=== PATIENT | male | born 1965 | race Caucasian/White ===

== ENCOUNTER 2025-05-07 14:19 | Outpatient (CLI) | payer OTHER, SELFPAY ==
--- NOTE | ~2025-05-07 | CT_ITS ---
CT of the Abdomen and Pelvis: Indication: Abdominal pain Technique: 2.5 mm axial scans were obtained through the abdomen and pelvis following intravenous adm inistration of 100 cc of Omnipaque 350. Dose reduction technique was used on this scan by utilizing a utomated exposure control and iterative reconstruction technique. The dose-length product (DLP) was 4 71.47 mGy-cm. Findings: Scans through the lung bases are unremarkable. The liver, spleen, pancreas, gallbladder, adrenals and kidneys are within normal limits. There are ex tensive atherosclerotic calcifications of the aorta and iliac vessels. No lymphadenopathy. No bowel obstruction or bowel wall thickening. There is no evidence to suggest acute appendicitis. Images through the pelvis were performed. Urinary bladder unremarkable. No pelvic mass seen. No ascit es. Impression: No acute abnormalities seen. Reviewed, dictated and finalized at [facility]. Impression: No acute abnormalities seen.
--- OUTSIDE RECORDS SUMMARY | 2025-05-07 14:24 | XMS_ITS | Clinical Summary ---
Author Organization [facility] Address [address] [place] [address] Care Team Providers Care Handyperson Name Role Phone Seamus Jimenez MD Primary Care Provider [phone] Allergies No known active allergies Medications No known medications Social History Tobacco Use Types Packs/Day Years Used Date Smoking Tobacco: Never Assessed Personal Safety Answer Date Recorded Have you ever been in or are you currently in a harmful physical or emotional relationship or is someone making you feel afraid or unsafe? 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 Gender Identity Not on file Sexual Orientation Not on file Obstetrics History Last Filed Vital Signs Vital Sign Reading Time Taken Comments Blood Pressure 159/81 02/06/2024 7:30 PM CDT Pulse 76 02/06/2024 7:30 PM CDT Temperature 36.7 C (98 F) 02/06/2024 1:25 PM CDT Respiratory Rate 14 02/06/2024 5:57 PM CDT Oxygen Saturation 97% 02/06/2024 7:30 PM CDT Inhaled Oxygen Concentration - - Weight 81.6 kg (180 lb) 02/06/2024 1:25 PM CDT Height 182.9 cm (6') 02/06/2024 1:25 PM CDT Body Mass Index 24.41 02/06/2024 1:25 PM CDT Plan of Treatment Health Maintenance Due Date Last Done Comments Colon Cancer Screening-Colonoscopy 1965 Depression Screening 1965 Hepatitis C Screening 1965 Prostate Cancer Screening-PSA 1963 DTaP/Tdap/Td Vaccine (1 - Tdap) 1974 Hepatitis B Screening 1981 Regular Well Visit/Exam 18-64 1981 Zoster Vaccine (1 of 2) 2013 Influenza Vaccine (#1) 2025 Pneumococcal vaccine <65 Aged Out No longer eligible based on patient's age to complete this topic Insurance [facility] Care Teams Handyperson Relationship Specialty Start Date End Date Seamus Jimenez MD [address] [place] [address] [place] [address] PCP - General Internal Medicine 04/29/25
--- OUTSIDE RECORDS SUMMARY | 2025-05-07 14:24 | XMS_ITS | Clinical Summary ---
Author Organization [facility] Address [address] [place] [address] Phone Care Team Providers Care Patient Office Rep Name Role Phone Abi Reza DO Primary Care Provider [phone] Encounters Date Type Department Care Team Description 04/19/2025 Telephone [facility] [address] [place] [address] MD from Last 3 Months Social History Tobacco Use Types Packs/Day Years Used Date Smoking Tobacco: Never Assessed Sex and Gender Information Value Date Recorded Sex Assigned at Not on file Legal Sex Male 10:56 AM CDT Gender Identity Not on file Sexual Orientation Not on file Plan of Treatment Upcoming Encounters Date Type Department Care Team (Late st Contact Info) Description 06/12/2025 10:00 AM CDT Office [facility] [address] [place] [address] Eugene Trinh MD [address] [address] Health Maintenance Due Date Last Done Comments Hepatitis C Virus (HCV) Screening 1965 TdaP Immunization 1965 Cologuard 2008 Colonoscopy 2008 Colorectal Cancer Screening 2008 Immunochemical Fecal Occult Blood 2008 Pneumococcal Immunization (5 0+ years) (1 of 1 - PCV) 2013 Zoster Immunization (1 of 2) 2013 PSA Discussion 2018 SARS-COV-2 Immunization ( - 2024-25 season) 2024 Influenza Immunization (Seas on Ended) 2025 Respiratory Syncytial Virus (RSV) Immunization (Adult) (1 - 1-dose 75+ series) 2038 Hepatitis B Immunization Aged Out No longer eligible based on patient's age to complete this topic Human Papillomavirus (HPV) Immunization Aged Out No longer eligible b ased on patient's age to complete this topic Meningococcal Immunization (ACWY) Aged Out No longer eligible based on patient's age to complete this topic Rotavirus Immunization Aged Out No lo nger eligible based on patient's age to complete this topic Insurance MEDICA[employer] Care Teams Patient Office Rep Relationship Specialty Start Date End Date Abi Reza DO [address] [place] [address] [address] PCP - General Family Medicine 01/24/25
--- OUTSIDE RECORDS SUMMARY | 2025-05-07 14:24 | XMS_ITS ---
Author Organization [facility] Address [address] [place] [address] Care Team Providers Care Cull Grader Name Role Phone Seamus Jimenez Primary Care Provider Results Component Value Reference Range Notes UA/M w/rflx Culture, Routine Reviewed date:05/01/2025 03:14:18 PM Interpretation: Performing Lab:[facility], [email or web address] [facility], Phone - [phone], Director - PhDRicmargareti Notes/Report: Specific Monetta 1.027 1.005-1.030 pH 5.5 5.0-7.5 Urine-Color Yellow Yellow Appearance Clear Clear WBC Esterase Negative Negative Protein Negative Negative/Trace Glucose Negative Negative Ketones Negative Negative Occult Blood Negative Negative Bilirubin Negative Negative Urobilinogen,Semi-Qn 0.2 0.2-1.0 mg/dL Nitrite, Urine Negative Negative Microscopic Examination Micr oscopic follows if indicated. Microscopic Examination See below: Micr oscopic was indicated and was performed. Urinalysis Reflex This speci men will not reflex to a Urine Culture. WBC None seen 0 - 5 /hpf RBC 0-2 0 - 2 /hpf Epithelial Cells (non renal) None seen 0 - 10 /hpf Casts None seen None seen /lpf Bacteria None seen None seen/Few TSH Rfx on Abnormal to Free T4 Reviewed date:05/01/2025 03:14:18 PM Interpretation: Performing Lab:[facility], [facility] [facility], Phone - [phone], Director - PhDMaximiliani Notes/Report: TSH 1.290 0.450-4.500 uIU/mL CMP 14 Comprehensive Metabol ic Panel* Reviewed date:05/01/2025 03:14:18 PM Interpretation: Performing Lab:[facility] [address] [place] [address], Phone - [phone], Director - [facility] Notes/Report: Glucose 97 70-99 mg/dL BUN 22 8-27 mg/dL Creatinine 0.98 0.76-1.27 mg/dL eGFR 88 >59 mL/min/1.73 BUN/Creatinine Ratio 22 10-24 Sodium 138 134-144 mmol/L Potassium 4.5 3.5-5.2 mmol/L Chloride 104 96-106 mmol/L Carbon Dioxide, Total 19 20-29 mmol/L Calcium 9.8 8.6-10.2 mg/dL Protein, Total 7.2 6.0-8.5 g/dL Albumin 4.4 3.9-4.9 g/dL Globulin, Total 2.8 1.5-4.5 g/dL Bilirubin, Total 0.4 0.0-1.2 mg/dL Alkaline Phosphatase 73 44-121 IU/L AST (SGOT) 20 0-40 IU/L ALT (SGPT) 17 0-44 IU/L Lipid Panel* Reviewed date:05/01/2025 03:14:18 PM Interpretation: Performing Lab:[address], Phone - [phone], Director - [facility] Notes/Report: Cholesterol, Total 159 100-199 mg/dL Triglycerides 99 0-149 mg/dL HDL Cholesterol 42 >39 mg/dL VLDL Cholesterol Kyle 18 5-40 mg/dL LDL Chol Calc (NIH) 99 0-99 mg/dL C-Reactive Protein, Quant Reviewed date:05/01/2025 03:14:18 PM Interpretation: Performing Lab:[address], Phone - [phone], [facility] Notes/Report: C-Reactive Protein, Quant 4 0-10 mg/L CBC With Differential/Platel et* Reviewed date:05/01/2025 03:14:18 PM Interpretation: Performing Lab:[address], Phone - [phone], Director - PhDTiara Notes/Report: WBC 8.5 3.4-10.8 x10E3/uL RBC 5.48 4.14-5.80 x10E6/uL Hemoglobin 16.2 13.0-17.7 g/dL Hematocrit 50.1 37.5-51.0 % MCV 91 79-97 fL MCH 29.6 26.6-33.0 pg MCHC 32.3 31.5-35.7 g/dL RDW 12.9 11.6-15.4 % Platelets 237 150-450 x10E3/uL Neutrophils 60 Not Estab. % Lymphs 30 Not Estab. % Monocytes 7 Not Estab. % Eos 2 Not Estab. % Basos 1 Not Estab. % Neutrophils (Absolute) 5.1 1.4-7.0 x10E3/uL Lymphs (Absolute) 2.5 0.7-3.1 x10E3/uL Monocytes(Absolute) 0.6 0.1-0.9 x10E3/uL Eos (Absolute) 0.2 0.0-0.4 x10E3/uL Baso (Absolute) 0.1 0.0-0.2 x10E3/uL Immature Granulocytes 0 Not Estab. % Immature Grans (Abs) 0.0 0.0-0.1 x10E3/uL Testosterone, Serum Reviewed date:05/01/2025 03:14:18 PM Interpretation: Performing Lab:[facility] [place], [address] [facility], Phone - [phone], Director - [facility] Notes/Report: Testosterone 452 264-916 ng/dL Adult male reference interval is based on a population of healthy nonobese males (BMI <30) between 19 and 39 years old. Vernon et.al. JCEM 2017,102;5626-7067. PMID: [id number]. PSA, Serum (Serial Monitor)* Reviewed date:05/01/2025 03:14:18 PM Interpretation: Performing Lab:[facility] [place], [address] [facility], [place], Phone - [phone], Director - [facility] Notes/Report: Prostate Specific Ag 2.6 0.0-4.0 ng/mL Dav ECLIA methodology. . According to the [place] [employer], Serum PSA should decrease and remain at undetectable levels after radical prostatectomy. The AUA defines biochemical recurrence as an initial PSA value 0.2 ng/mL or greater followed by a subsequent confirmatory PSA value 0.2 ng/mL or greater. Values obtained with different assay methods or kits cannot be used interchangeably. Results cannot be interpreted as absolute evidence of the presence or absence of malignant disease. PDF . REASON FOR VISIT Labs-fasting Medications Medication SIG (Take, Route, Frequency, Duration) Notes Start Date End Date Status Tamsulosin HCl 0.4 MG 1 capsule Orally O nce a day Active Glycopyrrolate-Formoterol 9-4.8 MCG/ACT 2 puffs Inhalation Twice a day Active Albuterol Sulfate HFA 108 (90 Base) MCG/ACT 1 puff as needed Inhalation every 4 hrs Active Varenicline Tartrate 0.5 MG 1 tablet aft er eating with a full glass of water DAILY FOR THREE DAYS, TWICE DAILY FOR 4 DAYS, THEN BEGIN 1 MG TABS Orally DIRECTED; Duration: 7 days 04/24/2025 Active Varenicline Tartrate 1 MG 1 tablet after eating with a full glass of water (BEGIN AFTER COMPLETING 0.5 MG TAB) Orally Twice a day; Duration: 30 days 04/24/2025 Active Rosuvastatin Calcium 20 MG 1 tablet Oral ly Once a day Active Finasteride 5 MG 1 tablet Orally Once a day; Duration: 30 days 04/24/2025 Active Encounters Encounter Location Date Provider Diagnosis [place] [address] [place] [address] 04/25/2025 Seamus Jimenez Erectile disorder N5 2.9 ; Abdominal pain R10.9 ; Hyperlipidemia E78.5 and BPH w/o urinary obs/LUTS N40.0 Assessments Encounter Date Diagnosis (ICD Code) Assessment Notes Treatment Notes Treatment Clinical Notes Section Notes 04/25/2025 Erectile disorder (ICD-10 - N52.9) 04/25/2025 Abdominal pain (ICD-10 - R10.9) 04/25/2025 Hyperlipidemia (ICD-10 - E78.5) 04/25/2025 BPH w/o urinary obs/LUTS (ICD-10 - N40.0) Plan Of Treatment Next Appt Details Provider Name:Seamus Jimenez , 05/09/2025 10:00:00 AM, [address] [facility] [address], [place], [address], Progress Notes * Cristobal KRAMERDOB:1965 ( 59 yo M)Acc No.[id number]:04/25/2025 UNLOCKED PROGRESS NOTE Patient: Cristobal COLEMAN Provider: Nieves Jimenez :1965 A ge:59 Y S ex:Male Date:04/25/2025 Address:[address] [place], [place] [id number] Subjective: * Chief Complaints: * 1 . Labs-fasting. * Medical History: * Medications: T aking Glycopyrrolate-Formoterol 9-4.8 MCG/ACT Aerosol 2 puffs Inhalation Twice a day , Taking Albuterol Sulfate HFA 108 (90 Base) MCG/ACT Aerosol Solution 1 puff as needed Inhalation every 4 hrs , Taking Tamsulosin HCl 0.4 MG Capsule 1 capsule Orally Once a day , Taking Rosuvastatin Calcium 20 MG Tablet 1 tablet Orally Once a day , Taking Finasteride 5 MG Tablet 1 tablet Orally Once a day , Taking Varenicline Tartrate 0.5 MG Tablet 1 tablet after eating with a full glass of water DAILY FOR THREE DAYS, TWICE DAILY FOR 4 DAYS, THEN BEGIN 1 MG TABS Orally DIRECTED , Taking Varenicline Tartrate 1 MG Tablet 1 tablet after eating with a full glass of water (BEGIN AFTER COMPLETING 0.5 MG TAB) Orally Twice a day Objective: * Vitals: Assessment: * Assessment: 1. E rectile disorder - N52.9 2 . A bdominal pain - R10.9 3 . H yperlipidemia - E78.5 4 . B PH w/o urinary obs/LUTS - N40.0 ? Plan: * Treatment: 2. A bdominal pain L AB: CBC With Differential/Platelet* (Collection Date & Time - 04/25/2025) L AB: C-Reactive Protein, Quant (Collection Date & Time - 04/25/2025) L AB: CMP 14 Comprehensive Metabolic Panel* (Collection Date & Time - 04/25/2025) L AB: UA/M w/rflx Culture, Routine (Collection Date & Time - 04/25/2025) 3. H yperlipidemia L AB: Lipid Panel* (Collection Date & Time - 04/25/2025) L AB: TSH Rfx on Abnormal to Free T4 (Collection Date & Time - 04/25/2025) 4. B PH w/o urinary obs/LUTS L AB: PSA, Serum (Serial Monitor)* (Collection Date & Time - 04/25/2025) * * Electronic signature of Elizabeth Jimenez , [id number] on 05/07/2025 at 02:24 PM CDT Sign off status: Pending * Provider: Nieves Jimenez Date: 0 04/25/2025 Generated for Genesis stern/Sheridan/eTkrista on: 0 05/07/2025 02:24 PM CDT
--- OUTSIDE RECORDS SUMMARY | 2025-05-07 14:24 | XMS_ITS | Referral Summary ---
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
--- OUTSIDE RECORDS SUMMARY | 2025-05-07 14:24 | XMS_ITS | Clinical Summary ---
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 Pulse 87 11/12/2015 8:28 AM MANAGER PHOTO Temperature - - Respiratory Rate - - Oxygen Saturation - - Inhaled Oxygen Concentration - - Weight 84.4 kg (186 lb) 11/12/2015 8:28 AM MANAGER PHOTO Height 177.8 cm (5' 10) 11/12/2015 8:28 AM MANAGER PHOTO Body Mass Index 26.69 11/12/2015 8:28 AM MANAGER PHOTO Plan of Treatment Health Maintenance Due Date Last Done Comments Colorectal Cancer Screening Colonoscopy (10 Years) 1963 Annual Physical 1966 Hepatitis C 1981 DTaP, Tdap and Td Vaccines ( 1 - Tdap) 1982 Pneumococcal Vaccine: 50+ Ye ars (1 of 1 - PCV) 2013 Zoster Vaccines (1 of 2) 2013 COVID-19 Vaccine ( - 2023-2 5 season) 2024 RSV Immunization or 60+ Years (1 - 1-dose 75+ series) 2038 Meningococcal B Vaccine Aged Out No l onger eligible based on patient's age to complete this topic Meningococcal Vaccine Aged Out No peña maggi eligible based on patient's age to complete this topic RSV Immunizations Under 20 Months Aged Out No longer eligible based on patient's age to complete this topic
--- OUTSIDE RECORDS SUMMARY | 2025-05-07 14:25 | XMS_ITS | Data Portability ---
Author Organization [facility] ALONSOZaynab [facility] Address [address] [place] [address] Assessment No assessment recorded. Plan of Treatment Reminders Order Date Submit Date Provider Last Modified By Organization Details Last Modified Time Details Appointments None recorded. Lab PSA, total, serum or plasma 2024 025 [facility] [address], [place], [address], 5 08:23:37 CMP, serum or plasma 2024 025 [facility], 20[facility] [address], [address], [place], [address], 5 08:23:41 CBC w/ auto diff 2024 025 [facility], 20[address], [address], [place], [address], 5 08:23:42 HbA1c (hemoglobi n A1c), blood 2024 025 [facility], 2022 Julia Lou, [address], [place], [address], 5 08:23:36 lipid panel, serum 2024 025 [facility], 20[address], [address], [place], [address], 5 08:23:40 lipid panel, serum 05/09/ 2024 05/09/2 024 [facility], 2022 Julia [address], [address], [place], [address], 4 06:17:59 albumin/cr eatinine, mass ratio, urine 2023 024 [facility], 2022 Julia [address], [address], [place], [address], 4 08:25:35 HbA1c (hemoglobi n A1c), blood 2023 024 [facility], 2022 Julia [address], [address], [place], [address], 4 08:25:36 Referral audiologis t referral 2023 024 [facility] (Audiology), [address] [place] [address] [address], [place], [address], 4 15:20:16 Procedures None recorded. Surgeries None recorded. Imaging None recorded. Medication Orders Flomax 0.4 mg capsule 2024 025 carlos [facility]/Pharmacy #[id number], [address] , [place], [address], 5 15:06:51 lisinopril 5 mg tablet 2024 025 [facility]/Pharmacy #[id number], [address], [place], [address], 5 12:42:03 Bevespi Aerosphere 9 mcg-4.8 mcg HFA aerosol inhaler 2024 025 [facility]/Pharmacy #[id number], [address], [place], [address], 5 12:42:04 rosuvastat in 20 mg tablet 2024 025 [facility]/Pharmacy #[id number], [address], [place], [address], 5 12:42:04 nicotine 21 mg/24 hr daily transderma l patch 2023 024 [facility]/Pharmacy #[id number], [address], [place], [address], 4 14:53:12 lisinopril 5 mg tablet 2023 024 [facility]/Pharmacy #[id number], [address], [place], [address], 4 16:27:46 atorvastat in 40 mg tablet 2023 024 [id number], [address] [place], [address], 4 16:27:46 Bevespi Aerosphere 9 mcg-4.8 mcg HFA aerosol inhaler 2023 024 [facility]/Pharmacy #[id number], [address] [place], [address], 4 11:04:33 albuterol sulfate HFA 90 mcg/actuat ion aerosol inhaler 2023 024 [facility]/Pharmacy #[id number], [address], [place], [address], 4 14:53:27 lisinopril 10 mg tablet 2023 024 [id number], [address], [place], [address], 4 11:33:16 atorvastat in 40 mg tablet 2023 024 [facility]/Pharmacy #[id number], [address], [place], [address], 16:54:23 Patient TargetsNo targets recorded. Patient Instructions Encounter Date Encounter Id Patient Instructions Last Modified By Organization Details Last Modified Time 11/08/2023 [id number] presbyopia: care instructions [email or web address] Not available 11/08/2023 14:34:37 headache: care instructions msafi Not available 11/08/2023 14:34:37 03/01/2024 [id number] Quitting Tobacco : Care Instructions Not available 03/01/2024 17:00:01 complete PFT w/ post bronchodilator spirometry* ASIYA Not available 04/18/2024 08:35:53 On the date of this encounter, I was immediately available to assist the resident/fellow in the care of the patient, and have reviewed and agree with the resident s findings and plan of care. ~MD shahriar Matthews4 Not available 03/01/2024 16:46:20 05/08/2024 [id number] On the date of this encounter, I was immediately available to assist the resident/fellow in the care of the patient, and have reviewed and agree with the resident s findings and plan of care. ~MD shahriar Matthews4 Not available 05/08/2024 14:35:17 01/18/2025 [id number] post-traumatic stress disorder (PTSD): care instructions [email or web address] Not available 01/18/2025 12:42:00 Quitting Tobacco : Care Instructions [email or web address] Not available 01/18/2025 12:42:00 learning about high blood pressure jdraus Not available 01/18/2025 12:42:00 chronic obstructive pulmonary disease (COPD): care instructions jdraus Not available 01/18/2025 12:42:01 learning about copd and how to prevent lung infections jdraus Not available 01/18/2025 12:42:00 high cholesterol : care instructions jdraus Not available 01/18/2025 12:42:01 I saw the patien t with the resident. I agree with the resident's assessment and plan as documented Alesha Villagomez MD [email or web address] Not available 01/18/2025 12:48:36 Reason for Referral Stem Roller Referral for Raúl ateral tinnitus Referring Physician: Heriberto Addison, Otolaryngology, Encounter Date: 11/08/2023 Results Created Date Observation Date Name Description Value Unit Range Abnormal Flag Note LastModifiedBy Organization Detail LastModifiedTime 03/01/20 24 03/01/2024 LIPID PANEL cholesterol, total 261 mg/dL 100-19 9 above high normal Not Available [facility] [address] [place] [address], [address], 03/02/2024 06:17:59 03/01/20 24 03/01/2024 LIPID PANEL triglyceride s 281 mg/dL 0-149 above high normal Not Available [facility] [address] [place] [address], [address], 03/02/2024 06:17:59 03/01/20 24 03/01/2024 LIPID PANEL HDL cholesterol 39 mg/dL 40-999 below low normal Not Available [facility] [address] [place], [address], 03/02/2024 06:17:59 03/01/20 24 03/01/2024 LIPID PANEL VLDL cholesterol lisa 56 mg/dL 5-40 above high normal Not Available [facility] [address] [place] [address], [address], 03/02/2024 06:17:59 03/01/20 24 03/01/2024 LIPID PANEL LDL chol calc ([facility]) 201 mg/dL 0-99 above high normal Not Available [facility] [address] [place] [address], [address], 03/02/2024 06:17:59 03/01/2003/02/2024 ALBUM IN/CR EATIN INE RATIO ,URIN E creatinine, urine 263.2 mg/dL notest ab. Not Available [facility] ([facility]) [address] [facility], [place], [address], 03/02/2024 08:25:35 05/09/20 24 03/02/2024 ALBUM IN/CR EATIN INE RATIO ,URIN E albumin, urine 7.0 ug/mL notest ab. Not Available [facility] ([facility]) [address] [place], [address], 03/02/2024 08:25:35 03/01/20 24 03/02/2024 ALBUM IN/CR EATIN INE RATIO ,URIN E alb/creat ratio 3 mg/g_ creat 0-29 Leilani l: 0 - 29 Moder ately incre ased: 30 - 300 Sever joe incre ased: >300 Not Available [facility] ([facility]) [address] [place], [address], 03/02/2024 08:25:35 03/01/20 24 03/02/2024 HEMOG LOBIN A1C hemoglobin A1C 6.1 % 4.8-5. 6 above high normal Predi abete s: 5.7 - 6.4 Diabe lori: >6.4 Glyce orly contr ol for adult s with diabe lori: <7.0 Not Available [facility] ([facility]) [address] [place], [address], 03/02/2024 08:25:36 01/19/2001/19/2025 HEMOG LOBIN A1C hemoglobin A1C 6.1 % 4.8-5. 6 above high normal Predi abete s: 5.7 - 6.4 Diabe lori: >6.4 Glyce orly contr ol for adult s with diabe olri: <7.0 Not Available [facility] ([facility]) [address] [place], [address], 01/19/2025 08:23:36 01/19/2001/19/2025 PROST ATE-S PECIF IC AG prostate specific Ag 4.7 NG/mL 0.0-4. 0 above high normal Dav ECLIA metho dolog y. Accor david to the Ameri can [employer] g[employer] iatio n, Serum PSA shoul d decre ase and remai n at undet ectab le level s after radic al prost atect derek. The AUA defin es bioch emica l recur rence as an initi al PSA value 0.2 ng/mL or great er follo wed by a subse quent confi rmato ry PSA value 0.2 ng/mL or great er. Value s obtai karon with diffe rent assay metho ds or kits canno t be used inter soriano eably . Resul ts canno t be inter prete d as absol gavi evide nce of the prese nce or absen ce of [facility] se. Not Available [facility] ([facility]) [address] [place], [address], 01/19/2025 08:23:37 01/19/20 25 01/19/2025 LIPID PANEL cholesterol, total 172 mg/dL 100-19 9 Not Available [facility] ([facility]) [address] [place], [address], 01/19/2025 08:23:40 01/19/20 25 01/19/2025 LIPID PANEL triglyceride s 213 mg/dL 0-149 above high normal Not Available [facility] ([facility]) [address] [place], [address], 01/19/2025 08:23:40 01/19/20 25 01/19/2025 LIPID PANEL HDL cholesterol 40 mg/dL >39 Not Available [facility] ([facility]) [address] [place], [address], 01/19/2025 08:23:40 01/19/20 25 01/19/2025 LIPID PANEL VLDL cholesterol lisa 36 mg/dL 5-40 Not Available [facility] ([facility]) [address] [place], [address], 01/19/2025 08:23:40 01/19/20 25 01/19/2025 LIPID PANEL LDL chol calc ([facility]) 96 mg/dL 0-99 Not Available [facility] ([facility]) [address] [facility] [place], [address], 01/19/2025 08:23:40 01/19/20 25 01/19/2025 COMP. METAB OLIC PANEL (14) glucose 76 mg/dL 70-99 Not Available [facility] ([facility]) [address] [facility] [place], [address], 01/19/2025 08:23:41 01/19/20 25 01/19/2025 COMP. METAB OLIC PANEL (14) BUN 27 mg/dL 8-27 Not Available [facility] ([facility]) [address] [facility] [place], [address], 01/19/2025 08:23:41 01/19/20 25 01/19/2025 COMP. METAB OLIC PANEL (14) creatinine 1.00 mg/dL 0.76-1 .27 Not Available [facility] ([facility]) [address] [place], [address], 01/19/2025 08:23:41 01/19/20 25 01/19/2025 COMP. METAB OLIC PANEL (14) eGFR 86 mL/mi n/1.7 3 >59 Not Available [facility] ([facility]) [address] [place], [address], 01/19/2025 08:23:41 01/19/20 25 01/19/2025 COMP. METAB OLIC PANEL (14) BUN/creatini ne ratio 27 10-24 above high normal Not Available [facility] ([facility]) [address] [place], [address], 01/19/2025 08:23:41 01/19/20 25 01/19/2025 COMP. METAB OLIC PANEL (14) sodium 139 mmol/ L 134-14 4 Not Available [facility] ([facility]) [address] [place], [address], 01/19/2025 08:23:41 01/19/20 25 01/19/2025 COMP. METAB OLIC PANEL (14) potassium 4.8 mmol/ L 3.5-5. 2 Not Available [facility] ([facility]) [address] [facility], [place], [address], 01/19/2025 08:23:41 01/19/20 25 01/19/2025 COMP. METAB OLIC PANEL (14) chloride 103 mmol/ L 96-106 Not Available [facility] ([facility]) [address] [facility], [place], [address], 01/19/2025 08:23:41 01/19/20 25 01/19/2025 COMP. METAB OLIC PANEL (14) carbon dioxide, total 20 mmol/ L 20-29 Not Available [facility] ([facility]) [address] [facility] [place], [address], 01/19/2025 08:23:41 01/19/20 25 01/19/2025 COMP. METAB OLIC PANEL (14) calcium 10.0 mg/dL 8.6-10 .2 Not Available [facility] ([facility]) [address] [facility] [place], [address], 01/19/2025 08:23:41 01/19/20 25 01/19/2025 COMP. METAB OLIC PANEL (14) protein, total 7.3 g/dL 6.0-8. 5 Not Available [facility] ([facility]) [address] [facility] [place], [address], 01/19/2025 08:23:41 01/19/20 25 01/19/2025 COMP. METAB OLIC PANEL (14) albumin 4.6 g/dL 3.9-4. 9 Not Available [facility] ([facility]) [address] [facility], [place], [address], 01/19/2025 08:23:41 01/19/20 25 01/19/2025 COMP. METAB OLIC PANEL (14) globulin, total 2.7 g/dL 1.5-4. 5 Not Available [facility] ([facility]) [address] [place], [address], 01/19/2025 08:23:41 01/19/20 25 01/19/2025 COMP. METAB OLIC PANEL (14) bilirubin, total 0.3 mg/dL 0.0-1. 2 Not Available [facility] ([facility]) [address] [facility], [place], [address], 01/19/2025 08:23:41 01/19/20 25 01/19/2025 COMP. METAB OLIC PANEL (14) alkaline phosphatase 79 IU/L 44-121 Not Available [facility] ([facility]) [address] [facility], [place], [address], 01/19/2025 08:23:41 01/19/20 25 01/19/2025 COMP. METAB OLIC PANEL (14) AST (SGOT) 18 IU/L 0-40 Not Available [facility] ([facility]) [address] [place], [address], 01/19/2025 08:23:41 01/19/20 25 01/19/2025 COMP. METAB OLIC PANEL (14) ALT (SGPT) 22 IU/L 0-44 Not Available [facility] ([facility]) [address] [place], [address], 01/19/2025 08:23:41 01/19/20 25 01/19/2025 CBC WITH DIFFE RENTI AL/PL ATELE T WBC 9.2 x10e3 /uL 3.4-10 .8 Not Available [facility] ([facility]) [address] [place], [address], 01/19/2025 08:23:42 01/19/20 25 01/19/2025 CBC WITH DIFFE RENTI AL/PL ATELE T RBC 5.45 x10e6 /uL 4.14-5 .80 Not Available [facility] ([facility]) [address] [place], [address], 01/19/2025 08:23:42 01/19/20 25 01/19/2025 CBC WITH DIFFE RENTI AL/PL ATELE T hemoglobin 16.0 g/dL 13.0-1 7.7 Not Available [facility] ([facility]) [address] [place], [address], 01/19/2025 08:23:42 01/19/20 25 01/19/2025 CBC WITH DIFFE RENTI AL/PL ATELE T hematocrit 49.1 % 37.5-5 1.0 Not Available [facility] ([facility]) [address] [place], [address], 01/19/2025 08:23:42 01/19/20 25 01/19/2025 CBC WITH DIFFE RENTI AL/PL ATELE T MCV 90 fL 79-97 Not Available [facility] ([facility]) [address] [place], [address], 01/19/2025 08:23:42 01/19/20 25 01/19/2025 CBC WITH DIFFE RENTI AL/PL ATELE T MCH 29.4 pg 26.6-3 3.0 Not Available [facility] ([facility]) [address] [place], [address], 01/19/2025 08:23:42 01/19/20 25 01/19/2025 CBC WITH DIFFE RENTI AL/PL ATELE T MCHC 32.6 g/dL 31.5-3 5.7 Not Available [facility] ([facility]) [address] [place], [address], 01/19/2025 08:23:42 01/19/20 25 01/19/2025 CBC WITH DIFFE RENTI AL/PL ATELE T RDW 12.9 % 11.6-1 5.4 Not Available [facility] ([facility]) [address] [facility], [place], [address], 01/19/2025 08:23:42 01/19/20 25 01/19/2025 CBC WITH DIFFE RENTI AL/PL ATELE T platelets 311 x10e3 /uL 150-45 0 Not Available [facility] ([facility]) [address] [facility], [place], [address], 01/19/2025 08:23:42 01/19/20 25 01/19/2025 CBC WITH DIFFE RENTI AL/PL ATELE T neutrophils 64 % notest ab. Not Available [facility] ([facility]) [address] [facility], [place], [address], 01/19/2025 08:23:42 01/19/20 25 01/19/2025 CBC WITH DIFFE RENTI AL/PL ATELE T lymphs 26 % notest ab. Not Available [facility] ([facility]) [address] [facility], [place], [address], 01/19/2025 08:23:42 01/19/20 25 01/19/2025 CBC WITH DIFFE RENTI AL/PL ATELE T monocytes 7 % notest ab. Not Available [facility] ([facility]) [address] [facility], [place], [address], 01/19/2025 08:23:42 01/19/20 25 01/19/2025 CBC WITH DIFFE RENTI AL/PL ATELE T eos 2 % notest ab. Not Available [facility] ([facility]) [address] [facility], [place], [address], 01/19/2025 08:23:42 01/19/20 25 01/19/2025 CBC WITH DIFFE RENTI AL/PL ATELE T basos 1 % notest ab. Not Available [facility] ([facility]) [address] [facility], [place], [address], 01/19/2025 08:23:42 01/19/20 25 01/19/2025 CBC WITH DIFFE RENTI AL/PL ATELE T neutrophils (absolute) 5.8 x10e3 /uL 1.4-7. 0 Not Available [facility] ([facility]) [address] [facility], [place], [address], 01/19/2025 08:23:42 01/19/20 25 01/19/2025 CBC WITH DIFFE RENTI AL/PL ATELE T lymphs (absolute) 2.4 x10e3 /uL 0.7-3. 1 Not Available [facility] ([facility]) [address] [facility], [place], [address], 01/19/2025 08:23:42 01/19/20 25 01/19/2025 CBC WITH DIFFE RENTI AL/PL ATELE T monocytes(ab solute) 0.7 x10e3 /uL 0.1-0. 9 Not Available [facility] ([facility]) [address] [facility], [place], [address], 01/19/2025 08:23:42 01/19/20 25 01/19/2025 CBC WITH DIFFE RENTI AL/PL ATELE T eos (absolute) 0.2 x10e3 /uL 0.0-0. 4 Not Available [facility] ([facility]) [address] [facility], [place], [address], 01/19/2025 08:23:42 01/19/20 25 01/19/2025 CBC WITH DIFFE RENTI AL/PL ATELE T baso (absolute) 0.1 x10e3 /uL 0.0-0. 2 Not Available [facility] ([facility]) [address] [facility], [place], [address], 01/19/2025 08:23:42 01/19/20 25 01/19/2025 CBC WITH DIFFE RENTI AL/PL ATELE T immature granulocytes 0 % notest ab. Not Available [facility] ([facility]) [address] [facility], [place], [address], 01/19/2025 08:23:42 01/19/20 25 01/19/2025 CBC WITH DIFFE RENTI AL/PL ATELE T immature grans (abs) 0.0 x10e3 /uL 0.0-0. 1 Not Available [facility] ([facility]) [address] [facility], [place], [address], 01/19/2025 08:23:42 12/03/19 24 12/03/2023 XR, ribs, bilat eral No observ ation record ed. [email or web address] [facility] [address] [place], [address], 12/05/2023 03:32:35 04/18/20 24 04/17/2024 compl ete PFT w/ post [facility] hodil ator ana paula metry * No observ ation record ed. [email or web address] [facility] [address] [place], [address], 05/08/2024 14:52:38 Result Notes None recorded. Problems Name Problem SNOMED Code Status Onset Date Resolution Date Notes Provider Name and Address Organization Details Recorded Time Tobacco dependenc e syndrome 20466265 Active 2021 SAILAJA DAUGHERTY MD Attn: Accounting ,[address] [facility], [place], [address] , [facility] 4 17:41:28 Dyspnea on exertion 79326238 Active 2021 Mild Not Available [facility] 3 06:18:20 Cough 82867331 Active 2021 Not Available [facility] 3 06:18:20 Family history of coronary arteriosc lerosis 961427592 Active 2021 Not Available [facility] 3 06:18:20 Family history of malignant neoplasm of lung 574651693 Active 2021 Not Available [facility] 3 06:18:20 Screening for malignant neoplasm of prostate Active 2021 Not Available [facility] 3 06:18:20 Screening for malignant neoplasm of colon Active 2021 Not Available [facility] 3 06:18:20 Blurring of visual image 644406435 Active 2021 Not Available [facility] 3 06:18:20 Lesion of lip 451403909 Active 2021 Not Available [facility] 3 06:18:20 Hyperlipi demia 05031013 Active 2021 SAILAJA DAUGHERTY MD Attn: Accounting ,[address] [place], [address] , [place] [facility] 4 17:42:30 History of polyp of colon 001244749 Active 2022 Erickson Anglin MD Attn: Accounting ,[address] [facility], [place], [address] , [place] [facility] 3 16:09:38 Disorder of abdomen 409435474 Active 2022 Protubera nt Erickson Anglin MD Attn: Accounting ,[address] [facility], [place], [address] , [place] [facility] 3 16:15:47 Skin lesion 03269687 Active 2022 Erickson Anglin MD Attn: Accounting ,[address] [facility], [place], [address] , [place] [facility] 3 16:28:00 Bilateral tinnitus 62958792619 02 Active 2022 Erickson Anglin MD Attn: Accounting ,[address] [facility], [place], [address] , [place] [facility] 3 17:07:38 Tick bite 36341039 Active 2023 Erickson Anglin MD Attn: Accounting ,[address] [facility], [place], [address] , [place] - [facility] 4 16:27:11 Essential hypertens ion 39607593 Active 2023 SAILAJA DAUGHERTY MD Attn: Accounting ,[address] [place], [address] , [facility] 4 17:41:51 Mild chronic obstructi ve pulmonary disease 047984307 Active 2023 DONNIE GILBERT DO Attn: Accounting ,[address] [place], [address] , [facility] 5 09:49:00 Problem Notes None recorded. Medical Equipment None Reported. Allergies Allergen ID Allergen Name Allergen Category Reaction Reaction Severity Criticality Documentation Date Start Date Code Code System Note Provider Name and Address Organization Details Recorded Time 500560 mattson allergeni c extract food,medi cation Not available Not available Not available 09/20/2022 11703 1 RxNorm Sheeba Giles null, [facility] 2 10:24:27 Medications Name Sig Start Date Stop Date Status Note LastModified by Organization Details LastModified Time atorvastati n 40 mg tablet active Not Available Not Available Not Available bupropion HCl SR 150 mg tablet,12 hr sustained-r elease TAKE ONE TABLET BY MOUTH TWICE DAILY 10/06 completed Not Available Not Available Not Available promethazin e-DM 6.25 mg-15 mg/5 mL oral syrup Take 10 mL 3 times a day by oral route as needed for 8 days. 10/06 completed Not Available Not Available Not Available doxycycline hyclate 100 mg capsule TAKE 2 CAPSULES BY MOUTH ONCE ONE DOSE 05/08 completed Not Available Not Available Not Available atorvastati n 10 mg tablet TAKE ONE TABLET BY MOUTH EVERY EVENING 03/01 completed Not Available Not Available Not Available peg-electro lyte solution 420 gram oral solution USE DIRECTED 05/08 completed Not Available Not Available Not Available tamsulosin 0.4 mg capsule TAKE 1 CAPSULE BY MOUTH EVERY DAY 2024 active Not Available Not Available Not Avai lable lisinopril 10 mg tablet TAKE 1 TABLET BY MOUTH EVERY DAY FOR 30 DAYS PATIEN T NEEDS TO SCHEDULE FOLLOW UP active Not Available Not Available No t Available nicotine 21 mg/24 hr daily transdermal patch APPLY 1 PATCH TO THE SKIN ONCE EVERY DAY active Not Available Not Available No t Available bisacodyl 5 mg tablet,zoë yed release TAKE DIRECTED 05/08 completed Not Available Not Available Not Available lisinopril 5 mg tablet Take 1 tablet every day by oral route. 2024 active Not Available Not Available Not Avai lable methylpredn isolone 4 mg tablets in a dose pack Use as directed on package 05/08 completed Not Available Not Available Not Available albuterol sulfate HFA 90 mcg/actuati on aerosol inhaler INHALE 2 PUFFS INTO THE LUNGS 4 TIMES A DAY NEEDED 2024 active Not Available Not Available Not Avai lable rosuvastati n 20 mg tablet take one tablet by mouth every day 2024 active Not Available Not Available Not Avai lable Advair HFA 230 mcg-21 mcg/actuati on aerosol inhaler INHALE TWO PUFFS TWICE DAILY 05/08 completed Not Available Not Available Not Available Bevespi Aerosphere 9 mcg-4.8 mcg HFA aerosol inhaler INHALE 2 PUFFS BY MOUTH TWICE DAILY FOR COPD active Not Available Not Available No t Available Compact Space Chamber USE as directed with inhaler active Not Available Not Available No t Available Vitals Date Recorded Body height Body temperature Body mass index (BMI) Body weight Heart rate Systolic And Diastolic Provider Name and Address Organization Details Last Updated DateTime 4 180.34 cm 98.1 [degF] 26.3 kg/m2 65936.5 2 g 52 /min 153/92 mm[Hg] Kim Wolff MA [facility] 4 14:18:46 Date Recorded Body height Body mass index (BMI) Body weight Heart rate Respiratory rate Body temperature Systolic And Diastolic Provider Name and Address Organization Details Last Updated DateTime 4 180.34 cm 26.3 kg/m2 76550.5 2 g 52 /min 18 /min 98.1 [degF] 153/92 mm[Hg] Varsha Hubbard MA [facility] 4 14:43:07 Date Recorded Body height Body mass index (BMI) Body weight Body temperature Heart rate Respiratory rate Oxygen saturation Oxygen saturation in Arterial blood by Pulse oximetry Systolic And Diastolic Provider Name and Address Organization Details Last Updated DateTime 5 180.34 cm 25.1 kg/m2 86922.9 8 g 99.1 [degF] 81 /min 18 /min 98 % 98 % 149/68 mm[Hg] Sunita Briceño MA [facility] 5 11:22:13 Date Recorded Body height Body mass index (BMI) Body weight Body temperature Respiratory rate Oxygen saturation Oxygen saturation in Arterial blood by Pulse oximetry Heart rate Systolic And Diastolic Provider Name and Address Organization Details Last Updated DateTime 4 180.34 cm 25.6 kg/m2 58389.8 5 g 97.1 [degF] 18 /min 99 % 99 % 80 /min 161/100 mm[Hg] Delfino maradiaga [facility] 4 16:03:31 Date Recorded Body height Body mass index (BMI) Body weight Respiratory rate Body temperature Heart rate Oxygen saturation Oxygen saturation in Arterial blood by Pulse oximetry Systolic And Diastolic Systolic And Diastolic Systolic And Diastolic Provider Name and Address Organization Details Last Updated DateTime 4 180.34 cm 25.3 kg/m2 25303.3 7 g 18 /min 97.1 [degF] 92 /min 95 % 95 % 103/67 mm[Hg] 119/71 mm[Hg] 108/72 mm[Hg] Indira Kim Cadence [facility] 4 14:46:18 Social History Question Answer Notes LastModified by Organizat ion Details LastModified Time Tobacco Smoking Status Current Every Day Smoker Sherron Petty [facility] 08/16/2022 14:14:17 Do You Have An Advance Directive? No Information not available 09/13/2022 Are You Blind Or Do You Have Difficulty Seeing? No Information not available 03/01/2024 What Is Your Level Of Caffeine Consumption? Occasional Information not available 05/08/2024 In The 14 Days Before Symptom Onset, Have You Had Close Contact With A Laboratory-confir med COVID-19 While That Case Was Ill? No Information not available 09/13/2022 In The 14 Days Before Symptom Onset, Have You Had Close Contact With A Person Who Is Under Investigation For COVID-19 While That Person Was Ill? No Information not available 09/13/2022 Have You Been To An Area Known To Be High Risk For COVID-19? No Information not available 09/13/2022 Are You Deaf Or Do You Have Serious Difficulty Hearing? Yes Went To Ear Dr melchor Information not available 03/01/2024 What Is The Highest Grade Or Level Of School You Have Completed Or The Highest Degree You Have Received? [id number] Information not available 09/13/2022 Are There Any Guns Present In Your Home? No Information not available 03/01/2024 Do You Have A Medical Power Of Executive Asst? No Information not available 09/13/2022 What Was The Date Of Your Most Recent Tobacco Screening? 01/18/2025 Information not available 01/18/2025 How Many Children Do You Have? 5 Information not available 05/08/2024 Do You Use Protection During Sex? Always Information not available 03/01/2024 What Is Your Relationship Status? Information not available 03/01/2024 Do You Use Your Seat Belt Or Car Seat Routinely? Yes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
[2025-05-07 15:07] LABS: Estimated Glomerular Filt Rate > 60
== END 2025-05-07 14:20 | disposition home or self-care (01) ==
PROVIDERS: Visit Provider Internal Medicine
DX: R10.9 Unspecified abdominal pain (principal)
CPT/HCPCS: 74177; Q9967

== ENCOUNTER 2025-08-14 00:24 | Day surgery (SDC) | payer OTHER, SELFPAY ==
--- OUTSIDE RECORDS SUMMARY | 2025-05-09 05:00 | XMS_ITS ---
Author Organization [facility] Address [address] [place] [address] Care Team Providers Care Shell Sorter Name Role Phone Seamus Jimenez Primary Care Provider REASON FOR VISIT 2 Week F/U Per Dr. Jimenez Encounters Encounter Location Date Provider Diagnosis [address] [place] [address] 05/09/2025 Seamus Jimenez Plan Of Treatment No Information Progress Notes * Cristobal KRAMERDOB:1965 ( 59 yo M)Acc No.[id number]:05/09/2025 UNLOCKED PROGRESS NOTE Progress Notes Patient: Cristobal COLEMAN Provider: Nieves Jimenez :1965 A ge:59 Y S ex:Male Date:05/09/2025 Address:[address] [place], [place] [id number] Subjective: * Chief Complaints: * 1 . 2 Week F/U Per Dr. Jimenez. * Medical History: Objective: * Vitals: Assessment: Plan: * Treatment: * * Electronic signature of Elizabeth Jimenez , [id number] on 08/14/2025 at 12:28 AM CDT Sign off status: Pending * Provider: Nieves Jimenez Date: 0 05/09/2025 Generated for Genesis ng/Faangeliqueg/eTransmitting on: 1 12:28 AM CDT
[2025-08-07 13:16] VITALS: BMI 24.5
--- OUTSIDE RECORDS SUMMARY | 2025-08-14 00:28 | XMS_ITS | Clinical Summary ---
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
--- OUTSIDE RECORDS SUMMARY | 2025-08-14 00:28 | XMS_ITS | Clinical Summary ---
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 Pulse 87 11/12/2015 8:28 AM CONTINUOUS P[employer] PICKLER Temperature - - Respiratory Rate - - Oxygen Saturation - - Inhaled Oxygen Concentration - - Weight 84.4 kg (186 lb) 11/12/2015 8:28 AM CONTINUOUS P[employer]LING [employer] PICKLER Height 177.8 cm (5' 10) 11/12/2015 8:28 AM CONTINUOUS P[employer] PICKLER Body Mass Index 26.69 11/12/2015 8:28 AM CONTINUOUS P[employer]LING [employer] PICKLER Plan of Treatment Health Maintenance Due Date Last Done Comments Colorectal Cancer Screening Colonoscopy (10 Years) 1965 Annual Physical 1966 Hepatitis C 1981 DTaP, Tdap and Td Vaccines ( 1 - Tdap) 1982 Pneumococcal Vaccine: 50+ Ye ars (1 of 1 - PCV) 2013 Zoster Vaccines (1 of 2) 2013 COVID-19 Vaccine ( - 2023-2 5 season) 2025 Influenza Adult (#1) 2025 RSV Immunization or 60+ Years (1 - 1-dose 75+ series) 2038 Hepatitis A Vaccines Aged Out No long er eligible based on patient's age to complete this topic Meningococcal B Vaccine Aged Out No l onger eligible based on patient's age to complete this topic Meningococcal Vaccine Aged Out No peña maggi eligible based on patient's age to complete this topic RSV Immunizations Under 20 Months Aged Out No longer eligible based on patient's age to complete this topic
--- OUTSIDE RECORDS SUMMARY | 2025-08-14 00:29 | XMS_ITS | Clinical Summary ---
Author Organization [facility] Address [address] [place] [address] Phone Care Team Providers Care Zigzag Tunnel Elastic Operator Name Role Phone Abi Reza DO Primary Care Provider [phone] Eugene Trinh MD Unavailable Allergies Active Allergy Reactions Criticality Noted Date Comments Burgos Unknown 07/17/2025 Medications Spacer/Aero-Hol ding Chambers (Compact Space Chamber) Device USE as directed with inhaler Active naproxen (NAPROSYN) 500 MG Tablet TAKE 1 TABLET BY MOUTH WITH FOOD OR MILK NEEDED ORALLY EVERY 12 HRS NEEDED PAIN 5 Active nicotine (NICODERM CQ) 21 MG/24HR PATCH 24 HR APPLY 1 PATCH TO THE SKIN ONCE EVERY DAY Active rosuvastatin (CRESTOR) 20 MG Tablet TAKE 1 TABLET BY MOUTH EVERY DAY SCHEDULE AN APPOINTMENT WITH YOUR PCP FOR REFILLS 5 Active tamsulosin (FLOMAX) 0.4 MG Capsule Take 1 Capsule by mouth daily. 5 Active varenicline (CHANTIX) 0.5 MG Tablet PLEASE SEE ATTACHED FOR DETAILED DIRECTIONS 5 Active finasteride (PROSCAR) 5 MG Tablet Take 5 mg by mouth daily. Active Encounters Date Type Department Care Team Description 07/17/2025 1:45 PM CDT Office Visit [facility] [address] [place] [address] Eugene Trinh MD Family history of prostate cancer in father (Primary Dx); Urinary retention; PSA elevation Discharge Disposition: Discharged to home or Selfcare 07/17/2025 Travel from Last 3 Months Social History Tobacco Use Types Packs/Day Years Used Date Smoking Tobacco: Former Cigarettes Tobacco Cessation:Counseling Given: Not Answered Sex and Gender Information Value Date Recorded Sex Assigned at Not on file Legal Sex Male 10:56 AM CDT Gender Identity Not on file Sexual Orientation Not on file Last Filed Vital Signs Vital Sign Reading Time Taken Comments Blood Pressure 118/78 07/17/2025 2:14 PM CDT Pulse 69 07/17/2025 2:14 PM CDT Temperature - - Respiratory Rate 16 07/17/2025 2:14 PM CDT Oxygen Saturation 99% 07/17/2025 2:14 PM CDT Inhaled Oxygen Concentration - - Weight 67.1 kg (148 lb) 07/17/2025 2:14 PM CDT Height 182.9 cm (6') 07/17/2025 2:14 PM CDT Body Mass Index 20.07 07/17/2025 2:14 PM CDT Plan of Treatment Health Maintenance Due Date Last Done Comments Hepatitis C Virus (HCV) Screening 1965 TdaP Immunization 1963 Cologuard 2008 Colonoscopy 2008 Colorectal Cancer Screening 2008 Immunochemical Fecal Occult Blood 2008 Pneumococcal Immunization (5 0+ years) (1 of 1 - PCV) 2013 Zoster Immunization (1 of 2) 2013 Influenza Immunization (#1) 2025 SARS-COV-2 Immunization ( season) 2025 Respiratory Syncytial Virus (RSV) Immunization (Adult) (1 - 1-dose 75+ series) 2038 PSA Discussion Completed 07/17/2025 Hepatitis B Immunization Aged Out No longer [...] on patient's age to complete this topic Procedures Procedure Name Priority Date/Time Associated Diagnosis Comments PSA DIAGNOSTIC,TOTAL Routine 07/17/2025 2:59 PM CDT Urinary retention POCT UA AUTOMATED W/O MICRO Routine 07/17/2025 2:05 PM CDT Urinary retention CONCEPCIÓN,POST-VOID RES,US,NON-IMAGING Routine 07/17/2025 1:45 PM CDT Urinary retention from Last 3 Months Results * PSA DIAGNOSTIC,TOTAL (07/17/2025 2:59 PM CDT) [facility] PSA, TOTAL (PROSTATIC SPECIFIC ANTIGEN) 1.97 <4.00 ng/mL 07/17/2025 5:03 PM CDT [facility] Blood Venipuncture / Unknown 07/17/2025 2:59 PM CDT 07/17/2025 4:11 PM CDT Narrative [facility] - 07/17/2025 5:03 PM CDT PSA NOTE: The PSA value should be used in conjunction with information available from clinical evaluation and other diagnostic procedures. The [employer] Total PSA assay is a Chemiluminescent Microparticle Immunoassay (CMIA) for the quantitative determination of total PSA (both free PSA and PSA complexed to [id number]) in human serum. Total PSA values obtained with different assay methods, including [employer] PSA assays, cannot be used interchangeably. us Eugene Trinh MD CHEMISTRY ORDERABLES Final Resul t [facility] [address] [place] [address] * POCT UA AUTOMATED W/O MICRO (07/17/2025 2:05 PM CDT) [facility] POC UA SPECIFIC GRAVITY 1.020 URINE PH 5.0 5.0 - 9.0 POC URINE LEUKOCYTES Negative Negative Susan/uL POC URINE NITRITE Negative Negative POC URINE PROTEIN Negative Negative mg/dL POC URINE GLUCOSE Norm Negative, Norm mg/dL POC URINE KETONE Negative Negative mg/dL POC URINE UROBILINOGEN Norm Norm, 0.2 E.U./dL (mg/dL), 1 E.U./dL (mg/dL) POC URINE BILIRUBIN Negative Negative mg/dL POC URINE BLOOD INSTRUMENT Negative Negative Ponce/uL POC URINE COLOR Yellow POC URINE CLARITY Clear Urine 07/17/2025 2:05 PM CDT Eugene Trinh MD POINT OF CARE TESTING (MANUAL) F inal Result * CONCEPCIÓN,POST-VOID RES,US,NON-IMAGING (07/17/2025 1:45 PM CDT) Narrative Annie Fuchs CNA - 07/17/2025 1:45 PM CDT Annie Fuchs CNA 07/17/2025 2:50 PM See Procedure Note Post void residual by bladder scan was 37 ml. us Eugene Trinh MD MS - SURGERY Final Result from Last 3 Months Insurance MEDICAID [employer] Care Teams Zigzag Tunnel Elastic Operator Relationship Specialty Start Date End Date Abi Reza DO [address] [place] [address] [address] [place] [address] PCP - General Family Medicine 01/24/25 Eugene Trinh MD [address] [place] [address] Consulting Physician Urology 06/05/25
--- OUTSIDE RECORDS SUMMARY | 2025-08-14 00:29 | XMS_ITS | Patient Health Record ---
Author Organization [facility] Address [address] [place] [address] Care Team Providers Care Ring Stamper Name Role Phone Seamus Jimenez Primary Care Provider Allergies Allergen (clinical drug ingredient) Drug/Non Drug Allergy documented on EMR Reaction Allergy Type Onset Date Status Burgos Unknown Drug Allergy Active Results Component Value Reference Range Notes Testosterone, Serum Reviewed date:05/01/2025 03:14:18 PM Interpretation: Performing Lab:[facility], [address] [facility] [place], Phone - [phone], Director - PhDCharron [facility]aternity Hospital[facility] Notes/Report: Testosterone 452 264-916 ng/dL Adult male reference interval is based on a population of healthy nonobese males (BMI <30) between 19 and 39 years old. Vernon et.al. JCEM 2017,102;1083-9308. PMID: [id number]. CBC With Differential/Platel et* Reviewed date:05/01/2025 03:14:18 PM Interpretation: Performing Lab:[facility], [address], [place], Phone - [phone], Director - PhDCharron Maternity Hospitalcatarinoi Notes/Report: WBC 8.5 3.4-10.8 x10E3/uL RBC 5.48 [...] % Immature Grans (Abs) 0.0 0.0-0.1 x10E3/uL C-Reactive Protein, Quant Reviewed date:05/01/2025 03:14:18 PM Interpretation: Performing Lab:[facility] [place], [address] [place] [address], Phone - [phone], Director - [facility] Notes/Report: C-Reactive Protein, Quant 4 0-10 mg/L Lipid Panel* Reviewed date:05/01/2025 03:14:18 PM Interpretation: Performing Lab:[facility] [place], [address] [place] [address], Phone - [phone], Director - [facility] Notes/Report: Cholesterol, Total 159 100-199 mg/dL Triglycerides 99 0-149 mg/dL HDL Cholesterol 42 >39 mg/dL VLDL Cholesterol Kyle 18 5-40 mg/dL LDL Chol Calc ([facility]) 99 0-99 mg/dL CMP 14 Comprehensive Metabol ic Panel* Reviewed date:05/01/2025 03:14:18 PM Interpretation: Performing Lab:[facility] [place], [address] [place] [address], Phone - [phone], Director - PhDCharron Maternity Hospital[facility]inoi Notes/Report: Glucose 97 70-99 mg/dL BUN 22 [...] 0-40 IU/L ALT (SGPT) 17 0-44 IU/L TSH Rfx on Abnormal to Free T4 Reviewed date:05/01/2025 03:14:18 PM Interpretation: Performing Lab:[facility] [place], Phone - [phone], Director - [facility] Notes/Report: TSH 1.290 0.450-4.500 uIU/mL PSA, Serum (Serial Monitor)* Reviewed date:05/01/2025 03:14:18 PM Interpretation: Performing Lab:[facility] [place] [place], Phone - [phone], Director - [facility] Notes/Report: Prostate Specific Ag 2.6 0.0-4.0 ng/mL Dav ECLIA methodology. . According to the [employer], Serum PSA should decrease and [...] or absence of malignant disease. PDF . UA/M w/rflx Culture, Routine Reviewed date:05/01/2025 03:14:18 PM Interpretation: Performing Lab:[facility] [place], [facility], Phone - [phone], Director - [facility] Notes/Report: Specific Kenner 1.027 1.005-1.030 pH 5.5 5.0-7.5 Urine-Color Yellow [...] seen /lpf Bacteria None seen None seen/Few CT Scan : Abd & Pelvis with and without contrast Reviewed date:05/22/2025 08:06:58 AM Interpretation: Performing Lab: Notes/Report: PDF Report Reviewed date:05/01/2025 03:14:18 PM Interpretation: Performing Lab:[facility] [place], [address] [facility], [place], Phone - [phone], Director - Luz [facility] Notes/Report: PDF Report1 LCLS Reason For Referral Reason pigmented nevi on ba ck, hx of blistering sunburn Diagnosis 1 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) Referral Organization [facility] Referring Provider First Name Seamus Referring Provider Last Name Tony Referring Provider Speciality Internal M edicine Referred Provider Specialty Dermatology General Notes Rama Argueta RN 12/2024 09:36:14 AM > faxed letter and text message sent Clinical Notes [facility], Dr Jaun Beavers , [address] [address], Phone Referral Priority Routine Reason f/u colonoscopy for LLQ abd pain with NL CT and hx of multiple polyps, prefers [place] Diagnosis 1 Colon polyps (K63.5) Referral Organization [facility] Referring Provider First Name Seamus Referring Provider Last Name Tony Referring Provider Speciality Internal M edicine Referred Provider Specialty Gastroentero logy General Notes Rama Argueta RN 09:00:47 AM >faxed letter sent Clinical Notes [facility], [address] , , fax [phone] Referral Priority Urgent Medications Medication SIG (Take, Route, Frequency, Duration) Notes Start Date End Date Status Glycopyrrolate-Formoterol 9-4.8 MCG/ACT 2 puffs Inhalation Twice a day Active Varenicline Tartrate 1 MG 1 tablet after eating with a full glass of water (BEGIN AFTER COMPLETING 0.5 MG TAB) Orally Twice a day; Duration: 30 days 04/24/2025 Active Naproxen 500 MG TAKE 1 TABLET BY MICHELINE WITH FOOD OR MILK NEEDED ORALLY EVERY 12 HRS NEEDED PAIN; Duration: 30 Active Rosuvastatin Calcium 20 MG 1 tablet Oral ly Once a day; Duration: 90 days Active Finasteride 5 MG 1 tablet Orally Once a day; Duration: 30 days 04/24/2025 Active Albuterol Sulfate HFA 108 (90 Base) MCG/ACT 1 puff as needed Inhalation every 4 hrs Active Social History Tobacco Use: Social History Observation Description Date Details (start date - stop date) Former Smoker 06/17/1983 - 06/17/2025 Tobacco Control (Standard) Question Answer Notes Tobacco use: Former smoker When did you start smoking? 06/17/1983 When did you stop smoking? 06/17/2025 How long has it been since y ou last smoked? Less than 1 month When did you start smoking? 04/23/1983 Additional Findings: Tobacco non-user Cu rrent nonsmoker,Current nonsmoker, but past smoking history unknown,Nonsmoker for medical reasons,Nonsmoker for personal reasons,Ex-cigarette smoker,Ex-heavy cigarette smoker (20-30/day),Does not use moist powdered tobacco,Never used moist powdered tobacco Problems Problem Type SNOMED Code ICD Code Onset Dates Problem Status W/U Status Risk Notes Problem Hypertension (56746479) Hypertension (I10) Active confirmed Problem Hyperlipidemia (74058684) Hyperlipidemia (E78.5) Active confirmed Problem Posttraumatic stress disorder (66961653) PTSD (post-traumatic stress disorder) (F43.10) Active confirmed Problem COPD - Chronic obstructive pulmonary disease (46156625) COPD (chronic obstructive pulmonary disease) (J44.9) Active confirmed Problem Cigarette smoker (82201433) Cigarette smoker (F17.210) Active confirmed Problem Lower urinary tract symptoms due to benign prostatic hypertrophy (00573086161988) BPH w/o urinary obs/LUTS (N40.0) Active confirmed Problem Erectile dysfunction (disorder) (415331252) Erectile disorder (N52.9) Active confirmed Vital Signs Heart Rate 81 /min 06/19/2025 Temperature 97.7 degrees Fahrenheit 06/19/2025 Respiratory Rate 16 /min 06/19/2025 Blood pressure diastolic 72 mm Hg 06/19/2025 Oximetry 98 % 06/19/2025 Height 72 in 06/19/2025 Blood pressure systolic 102 mm Hg 06/19/2025 Weight 178 lbs 6oz lbs 06/19/2025 BMI 24.19 kg/m2 06/19/2025 Encounters Encounter Location Date Provider Diagnosis [address] [address] 04/25/2025 Seamus Jimenez Erectile disorder N5 2.9 ; Abdominal pain R10.9 ; Hyperlipidemia E78.5 and BPH w/o urinary obs/LUTS N40.[address] [address] 04/24/2025 Seamus Jimenez Orthostatic hypotens ion I95.1 ; Hypertension I10 ; BPH w/o urinary obs/LUTS N40.0 ; Pigmented skin lesions L81.9 ; Abdominal pain R10.9 ; Hyperlipidemia E78.5 ; COPD (chronic obstructive pulmonary disease) J44.9 ; Cigarette smoker F17.210 ; Erectile disorder N52.9 ; PTSD (post-traumatic stress disorder) F43.10 and Colon polyps K63.[address] [address] 05/15/2025 Seamus Jimenez Hypertension I10 ; B PH w/o urinary obs/LUTS N40.0 ; Erectile disorder N52.9 ; Cigarette smoker F17.210 ; COPD (chronic obstructive pulmonary disease) J44.9 and Colon polyps K63.[address] [address] 06/19/2025 Seamus Jimenez Hypertension I10 ; Cigarette smoker F17.210 ; Erectile disorder N52.9 ; COPD (chronic obstructive pulmonary disease) J44.9 and Colon polyps K63.[address] [address] 04/30/2025 Seamus Jimenez [address] [address] 07/01/2025 Seamus Jimenez [address] [place] [address] 08/05/2025 Seamus Jimenez Assessments Encounter Date Diagnosis (ICD Code) Assessment Notes Treatment Notes Treatment Clinical Notes Section Notes 06/19/2025 Hypertension (ICD-10 - I10) 04/24/2025 Orthostatic hypotension (ICD-10 - I95.1) LIKELY RELATED TO TAMSULOSIN USE. 04/24/2025 Hypertension (ICD-10 - I10) 06/19/2025 Cigarette smoker (ICD-10 - F17.210) 05/15/2025 Hypertension (ICD-10 - I10) CONTROLLED. 05/15/2025 BPH w/o urinary obs/LUTS (ICD-10 - N40.0) 04/25/2025 Erectile disorder (ICD-10 - N52.9) 04/25/2025 Abdominal pain (ICD-10 - R10.9) 04/24/2025 BPH w/o urinary obs/LUTS (ICD-10 - N40.0) KEEP APPT WITH UROLOGY IN 05/2025. 05/15/2025 Erectile disorder (ICD-10 - N52.9) LIKELY DUE TO TAMSULOSIN 06/19/2025 Erectile disorder (ICD-10 - N52.9) 06/19/2025 COPD (chronic obstructive pulmonary disease) (ICD-10 - J44.9) 05/15/2025 Cigarette smoker (ICD-10 - F17.210) 04/24/2025 Pigmented skin lesions (ICD-10 - L81.9) 04/25/2025 Hyperlipidemia (ICD-10 - E78.5) 04/25/2025 BPH w/o urinary obs/LUTS (ICD-10 - N40.0) 04/24/2025 Abdominal pain (ICD-10 - R10.9) 06/19/2025 Colon polyps (ICD-10 - K63.5) 05/15/2025 COPD (chronic obstructive pulmonary disease) (ICD-10 - J44.9) 05/15/2025 Colon polyps (ICD-10 - K63.5) 04/24/2025 Hyperlipidemia (ICD-10 - E78.5) 04/24/2025 COPD (chronic obstructive pulmonary disease) (ICD-10 - J44.9) 04/24/2025 Cigarette smoker (ICD-10 - F17.210) 04/24/2025 Erectile disorder (ICD-10 - N52.9) TAMSULOSIN IS LIKELY CONTRIBUTING. 04/24/2025 PTSD (post-traumatic stress disorder) (ICD-10 - F43.10) 04/24/2025 Colon polyps (ICD-10 - K63.5) AWARD RECORDS FOR PATHOLOGY, GI RECOMMENDATIONS Plan Of Treatment No Information Insurance Providers Payer Name Payer Address Payer Phone Subscriber Number Group Number Insured Name Patient Relationship to Insured Coverage Start Date Coverage End Date [facility] Attn Claims Department [address] [place] [address] [phone] [id number] Cristobal Kramer Self - patient is the insured Medical (General) History Surgical History Surgery Date(Month/Year) spontaneous pneumothorax 1993 Hospitalization History Reason Date(Month/Year) chest pain and SOB 02/2025
--- OUTSIDE RECORDS SUMMARY | 2025-08-14 00:29 | XMS_ITS | Data Portability ---
Author Organization [facility] ALONSOZaynab [facility] Address [address] [place] [address] Assessment No assessment recorded. Plan of Treatment Reminders Order Date Submit Date Provider Last Modified By Organization Details Last Modified Time Details Appointments None recorded. Lab PSA, total, serum or plasma 2024 025 [facility] [address], [place], [address], 5 08:23:37 CMP, serum or plasma 2024 025 [facility], [address], [place], [address], 5 08:23:41 CBC w/ auto diff 2024 025 [facility], [address], [place], [address], 5 08:23:42 HbA1c (hemoglobi n A1c), blood 2024 025 [facility], [address], [place], [address], 5 08:23:36 lipid panel, serum 2024 025 [facility], [address], [place], [address], 5 08:23:40 lipid panel, serum 05/09/ 2024 05/09/2 024 [facility], [address], [place], [address], 4 06:17:59 albumin/cr eatinine, mass ratio, urine 2023 024 [facility], [address], [place], [address], 4 08:25:35 HbA1c (hemoglobi n A1c), blood 2023 024 [facility], [address], [place], [address], 4 08:25:36 Referral audiologis t referral 2023 024 [facility] (Audiology), [address] [place] [address] [address], [place], [address], 4 15:20:16 Procedures None recorded. Surgeries None recorded. Imaging None recorded. Medication Orders Flomax 0.4 mg capsule 2024 025 carlos [facility]/Pharmacy #[id number], [address] , [place], [address], 5 15:06:51 lisinopril 5 mg tablet 2024 025 [facility]/Pharmacy #[id number], [address], [place], [address], 5 12:42:03 Bevespi Aerosphere 9 mcg-4.8 mcg HFA aerosol inhaler 2024 025 [facility]/Pharmacy #[id number], [address], [place], [address], 5 12:42:04 rosuvastat in 20 mg tablet 2024 025 [facility]/Pharmacy #[id number], [address], [place], [address], 5 12:42:04 nicotine 21 mg/24 hr daily transderma l patch 2023 024 [facility]/Pharmacy #[id number], [address], [place], [address], 4 14:53:12 lisinopril 5 mg tablet 2023 024 [facility]/Pharmacy #[id number], [address], [place], [address], 4 16:27:46 atorvastat in 40 mg tablet 2023 024 [id number], [address] [place], [address], 4 16:27:46 Bevespi Aerosphere 9 mcg-4.8 mcg HFA aerosol inhaler 2023 024 [facility]/Pharmacy #[id number], [address], [address], 4 11:04:33 albuterol sulfate HFA 90 mcg/actuat ion aerosol inhaler 2023 024 [facility]/Pharmacy #[id number], [address], [place], [address], 4 14:53:27 lisinopril 10 mg tablet 2023 024 [id number], [address], [place], [address], 4 11:33:16 atorvastat in 40 mg tablet 2023 024 [facility]/Pharmacy #[id number], [address], [place], [address], 16:54:23 Patient TargetsNo targets recorded. Patient Instructions Encounter Date Encounter Id Patient Instructions Last Modified By Organization Details Last Modified Time 11/08/2023 [id number] presbyopia: care instructions msafi Not available 11/08/2023 14:34:37 headache: care instructions msafi Not available 11/08/2023 14:34:37 03/01/2024 [id number] Quitting Tobacco : Care Instructions [email or web address] Not available 03/01/2024 17:00:01 complete PFT w/ post bronchodilator spirometry* ASIYA Not available 04/18/2024 08:35:53 On the date of this encounter, I was immediately available to assist the resident/fellow in the care of the patient, and have reviewed and agree with the resident s findings and plan of care. ~MD shahriar Matthews4 Not available 03/01/2024 16:46:20 05/08/2024 [id number] On the date of this encounter, I was immediately available to assist the resident/fellow in the care of the patient, and have reviewed and agree with the resident s findings and plan of care. ~MD shahriar Matthews4 Not available 05/08/2024 14:35:17 01/18/2025 [id number] post-traumatic stress disorder (PTSD): care instructions [email or web address] [...] Not available 01/18/2025 12:48:36 Reason for Referral [employer] Referral for Raúl ateral tinnitus Referring Physician: Heriberto Addison, Otolaryngology, Encounter Date: 11/08/2023 Results Created Date Observation Date Name Description Value Unit Range Abnormal Flag Note LastModifiedBy Organization Detail LastModifiedTime 03/01/20 24 03/01/2024 LIPID PANEL cholesterol, total 261 mg/dL 100-19 9 above high normal Not Available [facility] [address] [place] [address], [address], 03/02/2024 06:17:59 03/01/20 24 03/01/2024 LIPID PANEL triglyceride s 281 mg/dL 0-149 above high normal Not Available [facility] [place] [facility] [address] [place] [address], [address], 03/02/2024 06:17:59 03/01/20 24 03/01/2024 LIPID PANEL HDL cholesterol 39 mg/dL 40-999 below low normal Not Available [facility] [address] [place], [address], 03/02/2024 06:17:59 03/01/20 24 03/01/2024 LIPID PANEL VLDL cholesterol lisa 56 mg/dL 5-40 above high normal Not Available [facility] [address] [place] [address], [address], 03/02/2024 06:17:59 03/01/20 24 03/01/2024 LIPID PANEL LDL chol calc ([facility]) 201 mg/dL 0-99 above high normal Not Available [facility] [address] [place] [address], [address], 03/02/2024 06:17:59 03/01/2003/02/2024 ALBUM IN/CR EATIN INE RATIO ,URIN E creatinine, urine 263.2 mg/dL notest ab. Not Available [facility] ([facility]) [address] [facility], [place], [address], 03/02/2024 08:25:35 05/09/20 24 03/02/2024 ALBUM IN/CR EATIN INE RATIO ,URIN E albumin, urine 7.0 ug/mL notest ab. Not Available [facility] ([facility]) [address] [place], [address], 03/02/2024 08:25:35 03/01/20 24 03/02/2024 ALBUM IN/CR EATIN INE RATIO ,URIN E alb/creat ratio 3 mg/g_ creat 0-29 Leilani l: 0 - 29 Moder ately incre ased: 30 - 300 Sever joe incre ased: >300 Not Available [facility] ([facility]) [address] [place], [address], 03/02/2024 08:25:35 03/01/20 24 03/02/2024 HEMOG LOBIN A1C hemoglobin A1C 6.1 % 4.8-5. 6 above high normal Predi abete s: 5.7 - 6.4 Diabe lori: >6.4 Glyce orly contr ol for adult s with diabe lori: <7.0 Not Available [facility] ([facility]) [address] [place], [address], 03/02/2024 08:25:36 01/19/2001/19/2025 HEMOG LOBIN A1C hemoglobin A1C 6.1 % 4.8-5. 6 above high normal Predi abete s: 5.7 - 6.4 Diabe lori: >6.4 Glyce orly contr ol for adult s with diabe lori: <7.0 Not Available [facility] ([facility]) [address] [place], [address], 01/19/2025 08:23:36 01/19/2001/19/2025 PROST ATE-S PECIF IC [...] t be inter prete d as absol viejas evide nce of the prese nce or absen ce of [facility] se. Not Available [facility] ([facility]) [address] [place], [address], 01/19/2025 08:23:37 01/19/20 25 01/19/2025 LIPID PANEL cholesterol, total 172 mg/dL 100-19 9 Not Available [facility] ([facility]) [address] [place], [address], 01/19/2025 08:23:40 01/19/20 25 01/19/2025 LIPID PANEL triglyceride s 213 mg/dL 0-149 above high normal Not Available [facility] ([facility]) [address] [place], [address], 01/19/2025 08:23:40 01/19/20 25 01/19/2025 LIPID PANEL HDL cholesterol 40 mg/dL >39 Not Available [facility]) [address] [place], [address], 01/19/2025 08:23:40 01/19/20 25 01/19/2025 LIPID PANEL VLDL cholesterol lisa 36 mg/dL 5-40 Not Available [facility]) [address] [place], [address], 01/19/2025 08:23:40 01/19/20 25 01/19/2025 LIPID PANEL LDL chol calc ([facility]) 96 mg/dL 0-99 Not Available [facility]) [address] [facility] [place], [address], 01/19/2025 08:23:40 01/19/20 25 01/19/2025 COMP. METAB OLIC PANEL (14) glucose 76 mg/dL 70-99 Not Available [facility] ([facility]) [address] [facility] [place], [address], 01/19/2025 08:23:41 01/19/20 25 01/19/2025 COMP. METAB OLIC PANEL (14) BUN 27 mg/dL 8-27 Not Available [facility] ([facility]) [address] [facility] [place], [address], 01/19/2025 08:23:41 01/19/20 25 01/19/2025 COMP. METAB OLIC PANEL (14) creatinine 1.00 mg/dL 0.76-1 .27 Not Available [facility] ([facility]) [address] [place], [address], 01/19/2025 08:23:41 01/19/20 25 01/19/2025 COMP. METAB OLIC PANEL (14) eGFR 86 mL/mi n/1.7 3 >59 Not Available [facility] ([facility]) [address] [place], [address], 01/19/2025 08:23:41 01/19/20 25 01/19/2025 COMP. METAB OLIC PANEL (14) BUN/creatini ne ratio 27 10-24 above high normal Not Available [facility] ([facility]) [address] [place], [address], 01/19/2025 08:23:41 01/19/20 25 01/19/2025 COMP. METAB OLIC PANEL (14) sodium 139 mmol/ L 134-14 4 Not Available [facility] ([facility]) [address] [place], [address], 01/19/2025 08:23:41 01/19/20 25 01/19/2025 COMP. METAB OLIC PANEL (14) potassium 4.8 mmol/ L 3.5-5. 2 Not Available [facility] ([facility]) [address] [facility], [place], [address], 01/19/2025 08:23:41 01/19/20 25 01/19/2025 COMP. METAB OLIC PANEL (14) chloride 103 mmol/ L 96-106 Not Available [facility] ([facility]) [address] [facility], [place], [address], 01/19/2025 08:23:41 01/19/20 25 01/19/2025 COMP. METAB OLIC PANEL (14) carbon dioxide, total 20 mmol/ L 20-29 Not Available [facility] ([facility]) [address] [facility] [place], [address], 01/19/2025 08:23:41 01/19/20 25 01/19/2025 COMP. METAB OLIC PANEL (14) calcium 10.0 mg/dL 8.6-10 .2 Not Available [facility] ([facility]) [address] [facility] [place], [address], 01/19/2025 08:23:41 01/19/20 25 01/19/2025 COMP. METAB OLIC PANEL (14) protein, total 7.3 g/dL 6.0-8. 5 Not Available [facility] ([facility]) [address] [facility] [place], [address], 01/19/2025 08:23:41 01/19/20 25 01/19/2025 COMP. METAB OLIC PANEL (14) albumin 4.6 g/dL 3.9-4. 9 Not Available [facility] ([facility]) [address] [facility], [place], [address], 01/19/2025 08:23:41 01/19/20 25 01/19/2025 COMP. METAB OLIC PANEL (14) globulin, total 2.7 g/dL 1.5-4. 5 Not Available [facility] ([facility]) [address] [place], [address], 01/19/2025 08:23:41 01/19/20 25 01/19/2025 COMP. METAB OLIC PANEL (14) bilirubin, total 0.3 mg/dL 0.0-1. 2 Not Available [facility] ([facility]) [address] [facility], [place], [address], 01/19/2025 08:23:41 01/19/20 25 01/19/2025 COMP. METAB OLIC PANEL (14) alkaline phosphatase 79 IU/L 44-121 Not Available [facility] ([facility]) [address] [facility], [place], [address], 01/19/2025 08:23:41 01/19/20 25 01/19/2025 COMP. METAB OLIC PANEL (14) AST (SGOT) 18 IU/L 0-40 Not Available [facility] ([facility]) [address] [place], [address], 01/19/2025 08:23:41 01/19/20 25 01/19/2025 COMP. METAB OLIC PANEL (14) ALT (SGPT) 22 IU/L 0-44 Not Available [facility] ([facility]) [address] [place], [address], 01/19/2025 08:23:41 01/19/20 25 01/19/2025 CBC WITH DIFFE RENTI AL/PL ATELE T WBC 9.2 x10e3 /uL 3.4-10 .8 Not Available [facility] ([facility]) [address] [place], [address], 01/19/2025 08:23:42 01/19/20 25 01/19/2025 CBC WITH DIFFE RENTI AL/PL ATELE T RBC 5.45 x10e6 /uL 4.14-5 .80 Not Available [facility] ([facility]) [address] [place], [address], 01/19/2025 08:23:42 01/19/20 25 01/19/2025 CBC WITH DIFFE RENTI AL/PL ATELE T hemoglobin 16.0 g/dL 13.0-1 7.7 Not Available [facility] ([facility]) [address] [place], [address], 01/19/2025 08:23:42 01/19/20 25 01/19/2025 CBC WITH DIFFE RENTI AL/PL ATELE T hematocrit 49.1 % 37.5-5 1.0 Not Available [facility] ([facility]) [address] [place], [address], 01/19/2025 08:23:42 01/19/20 25 01/19/2025 CBC WITH DIFFE RENTI AL/PL ATELE T MCV 90 fL 79-97 Not Available [facility] ([facility]) [address] [place], [address], 01/19/2025 08:23:42 01/19/20 25 01/19/2025 CBC WITH DIFFE RENTI AL/PL ATELE T MCH 29.4 pg 26.6-3 3.0 Not Available [facility] ([facility]) [address] [place], [address], 01/19/2025 08:23:42 01/19/20 25 01/19/2025 CBC WITH DIFFE RENTI AL/PL ATELE T MCHC 32.6 g/dL 31.5-3 5.7 Not Available [facility] ([facility]) [address] [place], [address], 01/19/2025 08:23:42 01/19/20 25 01/19/2025 CBC WITH DIFFE RENTI AL/PL ATELE T RDW 12.9 % 11.6-1 5.4 Not Available [facility] ([facility]) [address] [facility], [place], [address], 01/19/2025 08:23:42 01/19/20 25 01/19/2025 CBC WITH DIFFE RENTI AL/PL ATELE T platelets 311 x10e3 /uL 150-45 0 Not Available [facility] ([facility]) [address] [facility], [place], [address], 01/19/2025 08:23:42 01/19/20 25 01/19/2025 CBC WITH DIFFE RENTI AL/PL ATELE T neutrophils 64 % notest ab. Not Available [facility] ([facility]) [address] [facility], [place], [address], 01/19/2025 08:23:42 01/19/20 25 01/19/2025 CBC WITH DIFFE RENTI AL/PL ATELE T lymphs 26 % notest ab. Not Available [facility] ([facility]) [address] [facility], [place], [address], 01/19/2025 08:23:42 01/19/20 25 01/19/2025 CBC WITH DIFFE RENTI AL/PL ATELE T monocytes 7 % notest ab. Not Available [facility] ([facility]) [address] [facility], [place], [address], 01/19/2025 08:23:42 01/19/20 25 01/19/2025 CBC WITH DIFFE RENTI AL/PL ATELE T eos 2 % notest ab. Not Available [facility] ([facility]) [address] [facility], [place], [address], 01/19/2025 08:23:42 01/19/20 25 01/19/2025 CBC WITH DIFFE RENTI AL/PL ATELE T basos 1 % notest ab. Not Available [facility] ([facility]) [address] [facility], [place], [address], 01/19/2025 08:23:42 01/19/20 25 01/19/2025 CBC WITH DIFFE RENTI AL/PL ATELE T neutrophils (absolute) 5.8 x10e3 /uL 1.4-7. 0 Not Available [facility] ([facility]) [address] [facility], [place], [address], 01/19/2025 08:23:42 01/19/20 25 01/19/2025 CBC WITH DIFFE RENTI AL/PL ATELE T lymphs (absolute) 2.4 x10e3 /uL 0.7-3. 1 Not Available [facility] ([facility]) [address] [facility], [place], [address], 01/19/2025 08:23:42 01/19/20 25 01/19/2025 CBC WITH DIFFE RENTI AL/PL ATELE T monocytes(ab solute) 0.7 x10e3 /uL 0.1-0. 9 Not Available [facility] ([facility]) [address] [facility], [place], [address], 01/19/2025 08:23:42 01/19/20 25 01/19/2025 CBC WITH DIFFE RENTI AL/PL ATELE T eos (absolute) 0.2 x10e3 /uL 0.0-0. 4 Not Available [facility] ([facility]) [address] [facility], [place], [address], 01/19/2025 08:23:42 01/19/20 25 01/19/2025 CBC WITH DIFFE RENTI AL/PL ATELE T baso (absolute) 0.1 x10e3 /uL 0.0-0. 2 Not Available [facility] ([facility]) [address] [facility], [place], [address], 01/19/2025 08:23:42 01/19/20 25 01/19/2025 CBC WITH DIFFE RENTI AL/PL ATELE T immature granulocytes 0 % notest ab. Not Available [facility] ([facility]) [address] [facility], [place], [address], 01/19/2025 08:23:42 01/19/20 25 01/19/2025 CBC WITH DIFFE RENTI AL/PL ATELE T immature grans (abs) 0.0 x10e3 /uL 0.0-0. 1 Not Available [facility] ([facility]) [address] [facility], [place], [address], 01/19/2025 08:23:42 12/03/19 24 12/03/2023 XR, ribs, bilat eral No observ ation record ed. [facility] [address] [place], [address], 12/05/2023 03:32:35 04/18/20 24 04/17/2024 compl ete PFT w/ [facility] hodil ator ana paula metry * No observ ation record ed. [email or web address] [facility] [address] [place], [address], 05/08/2024 14:52:38 Result Notes None recorded. Problems Name Problem SNOMED Code Status Onset Date Resolution Date Notes Provider Name and Address Organization Details Recorded Time Tobacco dependenc e syndrome 01708661 Active 2021 SAILAJA DAUGHERTY MD Attn: Accounting ,[address] [facility], [place], [address] , [facility] 4 17:41:28 Dyspnea on exertion 47800568 Active 2021 Mild Not Available [facility] 3 06:18:20 Cough 30545590 Active 2021 Not Available [facility] 3 06:18:20 Family history of coronary arteriosc lerosis 997767440 Active 2021 Not Available [facility] 3 06:18:20 Family history of malignant neoplasm of lung 508943645 Active 2021 Not Available [facility] 3 06:18:20 Screening for malignant neoplasm of prostate Active 2021 Not Available [facility] 3 06:18:20 Screening for malignant neoplasm of colon Active 2021 Not Available [facility] 3 06:18:20 Blurring of visual image 623806381 Active 2021 Not Available [facility] 3 06:18:20 Lesion of lip 082800557 Active 2021 Not Available [facility] 3 06:18:20 Hyperlipi demia 85455916 Active 2021 SAILAJA DAUGHERTY MD Attn: Accounting ,[address] [place], [address] , [place] [facility] 4 17:42:30 History of polyp of colon 322414265 Active 2022 Erickson Anglin MD Attn: Accounting ,[address] [facility], [place], [address] , [place] [facility] 3 16:09:38 Disorder of abdomen 177965330 Active 2022 Protubera nt Erickson Anglin MD Attn: Accounting ,[address] [facility], [place], [address] , [place] [facility] 3 16:15:47 Skin lesion 53053342 Active 2022 Erickson Anglin MD Attn: Accounting ,[address] [facility], [place], [address] , [place] - [facility] 3 16:28:00 Bilateral tinnitus 32486659663 02 Active 2022 Erickson Anglin MD Attn: Accounting ,[address] [facility], [place], [address] , [place] [facility] 3 17:07:38 Tick bite 78690279 Active 2023 Erickson Anglin MD Attn: Accounting ,[address] [facility], [place], [address] , [place] [facility] 4 16:27:11 Essential hypertens ion 58441352 Active 2023 SAILAJA DAUGHERTY MD Attn: Accounting ,[address] [place], [address] , [facility] 4 17:41:51 Mild chronic obstructi ve pulmonary disease 782102785 Active 2023 DONNIE GILBERT DO Attn: Accounting ,[address] [place], [address] , [facility] 5 09:49:00 Problem Notes None recorded. Medical Equipment None Reported. Allergies Allergen ID Allergen Name Allergen Category Reaction Reaction Severity Criticality Documentation Date Start Date Code Code System Note Provider Name and Address Organization Details Recorded Time 744250 mattson allergeni c extract food,medi cation Not available Not available Not available 09/20/2022 09178 1 RxNorm Sheeba Giles null, [facility] 2 10:24:27 Medications Name Sig Start [...] Avai lable rosuvastati n 20 mg tablet TAKE 1 TABLET BY MOUTH EVERY DAY FABI ROWAN APPOINTME NT WITH YOUR PCP FOR REFILLS 2024 active Not Available Not Available Not [...] t Available Vitals Date Recorded Body height Pain severity - 0-10 verbal numeric rating [Score] - Reported Body temperature Body mass index (BMI) Body weight Heart rate Systolic And Diastolic Provider Name and Address Organization Details Last Updated DateTime 4 180.34 cm 0 98.1 [degF] 26.3 kg/m2 73333.5 2 g 52 /min 153/92 mm[Hg] Kim Wolff [place] [facility] 4 14:18:46 Date Recorded Body height Body mass index (BMI) Body weight Heart rate Respiratory rate Body temperature Pain severity - 0-10 verbal numeric rating [Score] - Reported Systolic And Diastolic Provider Name and Address Organization Details Last Updated DateTime 4 180.34 cm 26.3 kg/m2 96460.5 2 g 52 /min 18 /min 98.1 [degF] 0 153/92 mm[Hg] Varsha Hubbard MA [facility] 4 14:43:07 Date Recorded Body height Body mass index (BMI) Body weight Body temperature Heart rate Respiratory rate Oxygen saturation Oxygen saturation in Arterial blood by Pulse oximetry Systolic And Diastolic Provider Name and Address Organization Details Last Updated DateTime 5 180.34 cm 25.1 kg/m2 02349.9 8 g 99.1 [degF] 81 /min 18 /min 98 % 98 % 149/68 mm[Hg] Sunita Briceño MA [facility] 5 11:22:13 Date Recorded Body height Body mass index (BMI) Body weight Body temperature Respiratory rate Oxygen saturation Oxygen saturation in Arterial blood by Pulse oximetry Heart rate Systolic And Diastolic Provider Name and Address Organization Details Last Updated DateTime 4 180.34 cm 25.6 kg/m2 27156.8 5 g 97.1 [degF] 18 /min 99 % 99 % 80 /min 161/100 mm[Hg] Delfino maradiaga [facility] 4 16:03:31 Date Recorded Body height Body mass index (BMI) Body weight Respiratory rate Body temperature Heart rate Oxygen saturation Oxygen saturation in Arterial blood by Pulse oximetry Systolic And Diastolic Systolic And Diastolic Systolic And Diastolic Provider Name and Address Organization Details Last Updated DateTime 4 180.34 cm 25.3 kg/m2 71409.3 7 g 18 /min 97.1 [degF] 92 /min 95 % 95 % 103/67 mm[Hg] 119/71 mm[Hg] 108/72 mm[Hg] Indira Kim Cadence [facility] 4 14:46:18 Social History Question Answer Notes LastModified by Organizat ion Details LastModified Time Tobacco Smoking Status Current Every Day Smoker Sherron Petty MA [facility], [facility] 08/16/2022 14:14:17 Do You Have An Advance [...] Or The Highest Degree You Have Received? [id number] Information not available 09/13/2022 Are There Any Guns Present In Your Home? No Information not available 03/01/2024 Do You Have A Medical Power Of Research Consultant? No Information not available 09/13/2022 What Was [...] 09/13/2022 Are you able to care for yourself independently? Yes Information not available 03/01/2024 What is your exercise level? None Information not available 03/01/2024 Mental Status Question Answer Note LastModified by Organization D etails LastModified Time Do you feel stressed (tense, restless, nervous, or anxious, or unable to sleep at night)? [id number] Information not available 03/01/2024 Family History Relationship Description Onset Age of this Age Resolved Age Notes LastModified by Organization Details LastModified Time Father Malignant neoplasm of prostate [email or web address] Not available 2021 14:13:57 Father Chronic obstructive pulmonary disease [email or web address] Not available 2021 14:14:09 Father Heart disease Not available 2021 14:36:35 Father Diabetes mellitus [email or web address] Not available 2021 14:50:44 Mother Chronic obstructive pulmonary disease [email or web address] Not available 2021 14:14:09 Mother Heart disease [email or web address] Not available 2021 14:36:35 Mother Diabetes mellitus [email or web address] Not available 2021 14:50:44 Notes:01/18/25 Medical History No medical history recorded. Past Encounters Encounter ID Performer Location Encounter Start Date Encounter Closed Date Diagnosis/Indication Diagnosis SNOMED-CT Code Diagnosis ICD10 Code Diagnosis IMO Codes Diagnosis Note [id number] MD Guido Whitman (Adult Med) [address] [place] [phone] 08/16/2022 13:42:58 08/17/2022 08:23:51 Tobacco dependence syndrome 99616673 F17.200 Family his tory of coronary arteriosclerosis 005284082 Z82.49 Family his tory of malignant neoplasm of lung 489740505 Z80.1 Dyspnea on exertion 6084 5006 R06.09 Cough 75582073 R05.9 Screening for malignant neoplasm of prostate 238424905 Z12.5 Screening for malignant neoplasm of colon 927074704 Z12.11 Blurring o f visual image 317325055 H53.8 Lesion of lip 234311439 K13.0 [id number] Faiza Hassan MD [facility] [address] [place] [id number] 09/13/2022 13:46:09 09/14/2022 07:32:29 Presbyopia 65720965 H52.4 Raised int raocular pressure 945812492 H40.059 H40.053 Headache 37910361 R51.9 [id number] Heriberto Addison MD [facility] [address] [place] [address] 09/20/2022 10:04:36 09/20/2022 12:12:43 Lesion of lip 574410259 K13.0 lesion is benign follow back in 6 months or earlier if there is any changes [id number] MD Guido Whitman (Adult Med) [address] [place] [address] 0 11/25/2022 15:26:33 11/29/2022 15:11:31 Hyperlipidemia 56726861 E78.5 Will start statin History of polyp of colon 945809815 Z86.010 F/U with GI Tobacco de pendence syndrome 75655864 F17.200 Disorder of abdomen 1189 74703 R19.8 Discussed increased activity /weight loss [id number] MD Guido Whitman (Adult Med) [address] [place] [address] 0 03/24/2023 15:13:47 03/25/2023 13:52:03 Overweight 795710854 E66.3 Dyspnea on exertion 6084 5006 R06.09 Family his tory of coronary arteriosclerosis 145831195 Z82.49 History of polyp of colon 634774178 Z86.010 F/U with GI Lesion of lip 543948083 K13.0 Skin lesion 11921701 L98 .9 Tobacco de pendence syndrome 52240306 F17.200 Hyperlipidemia 95564419 E78.5 Will start statin [id number] Heriberto Addison MD [facility] [address] [address] 2 05/10/2023 10:39:32 05/11/2023 09:34:39 Lesion of lip 255613986 K13.0 lesion is benign follow back in 6 months or earlier if there is any changes lesion appears benign unchanged just follow back if it does change [id number] Luan Boyle MD [facility] [address] [place] [address] 05/10/2023 11:37:25 05/10/2023 14:07:10 Seborrheic keratosis 384172796 L82.1 1) no surgical interventi on2) continued observatio n3) lotion to lower back to avoid dry skin [id number] [facility] [address] [place] [address] 0 08/18/2023 16:26:51 08/19/2023 11:25:08 Overweight 541799906 E66.3 Dyspnea on exertion 6084 5006 R06.09 refer to pulmonary Tobacco de pendence syndrome 77446296 F17.200 Hyperlipidemia 01180474 E78.5 Will start statin Screening for malignant neoplasm of prostate 238082821 Z12.5 History of polyp of colon 457279507 Z86.010 F/U with GI Bilateral tinnitus 40859 20272 102 H93.13 [id number] [facility]kson [facility] [address] [place] [address] 0 10/06/2023 14:20:57 10/11/2023 10:47:35 Overweight 735543971 E66.3 Hyperlipidemia 34085065 E78.5 Improved. Continue statin Tobacco de pendence syndrome 11011245 F17.200 Bilateral tinnitus 00087 68157 102 H93.13 F/U ENT as scheduled Blurring o f visual image 159427531 H53.8 History of polyp of colon 465657373 Z86.010 Pt to call GI re f/u colonoscop y [id number] Faiza Hassan MD [facility] [address] [place] [address] 11/08/2023 14:07:57 11/09/2023 09:35:16 Presbyopia 43916397 H52.4 Headache 39797502 R51.9 Tear film insufficiency of bilateral eyes 3990459483 36249 H04.829 [id number] Heriberto Addison MD [facility] [address] [place] [address] 11/08/2023 14:11:36 11/09/2023 07:50:58 Bilateral tinnitus 5800830296 102 H93.13 follow back after audiogram [id number] MD Mc Sequeira 14 IM [address] [facility] [address] [place], [place] [address], [place] [address] 03/01/2024 15:46:06 03/26/2024 15:04:20 Essential hypertension 01676208 I10 Patient with elevated blood pressure 161/100 [...] high-inten sity statin Diabetes m ellitus screening 498272133 Z13.1 Patient is a family history of type 2 diabetes. Will check A1c for diabetes Dyspnea 702986793 R06.00 Patient has shortness of breath. Along with wheezing on exam. Smoking history. Patient with urgent care was started on Advair and albuterol. Will consider switching patient to Spiriva wants formal diagnosis is made Smoker 96824323 F17.200 - Spent between 3-10 min discussing risks of smoking and benefits of quitting, patient not interested currently about cessation. [id number] MD Mc Sequeira 14 IM [address] [facility] [place] [address] 05/08/2024 13:36:35 05/24/2024 14:09:05 Essential hypertension 71669816 I10 Patient initial elevated blood pressure 161/100 patient was started on lisinopril 10 mg now patient presents with blood pressure at 103/67 with a complaint of feeling lightheade d after standing up from a seated position. orthostati c vital signs were done in office which were negative. we will cut back on patient's lisinopril to 5 mg Hyperlipidemia 92764692 E78.5 patient lipid panel done last visit showed elevated cholestero l 261 low HDL at 39 and needed LDL 201. due to patient his past medical history of hypertensi on he would benefit from high-dose statin Tobacco de pendence syndrome 40005827 F17.200 patient agrees to work on stopping smoking. patient would like a nicotine patch. Mild chron ic obstructive pulmonary disease 102862279 J44.9 PFT shows mild COPD. patient with no previous hospitaliz ation for COPD. we will start him on Bevespi and albuterol [id number] MD Mc Ferguson 14 IM [address] [facility] [address] [place] [address] 01/18/2025 11:09:45 02/26/2025 09:08:24 Essential hypertension 52170738 I10 ChronicBP in office today 149/68. At goal <150/90 due to being over 60 years old.States he got light headed with increased lisinopril dose in the past. Plan- Continue Lisinopril 5 mg PO daily- CMP today Hyperlipidemia 58828638 E78.5 ChronicDis cussed importance of statins as patient was unsure if willing to continue them at this time. Plan- Lipid panel and A1c today- Continue rosuvastat in 20 mg PO daily Chronic ob structive pulmonary disease 41232576 J44.9 Chronic,Mikael larose stated he changed insurances and they didn't previously cover his inhaler. It appears it might be covered now, will try again. Also discussed smoking cessation which he was motivated to do. Plan- Albuterol inhaler prn- Retry Bevespi inhaler if covered by insurance- Check CBC today- Follow-up in 3 months Family his tory of malignant neoplasm of prostate 929169720 Z80.42 Patient reports father and another relative had prostate cancer.Singer s report increased night time bathroom visits 3-4 per night. Weak stream.Las t PSAs were normal. Plan- start flomax 0.4 mg PO daily- PSA today Post-traum atic stress disorder 73546006 F43.12 Patient reports night terrors from his experience s. Declines medication s at this time as he doesn't want to take a lot of medicines. Plan- Consider Prasozin in the future if patient is open Smoker 38127447 F17.210 Chronic, ~ 1ppdSpent between 3-10 min [...] depression on PHQ-9 (Patient Health Questionnaire 9) 6813959392 88856 Z13.31 Patient under a lot of stressors [...] Mao Member ID Guarantor Name 02/26/2025 1 [facility] ON OR AFTER 04/23/21 (MEDICAID REPLACEMENT - HMO) Cristobal Williams [id number] Cristobal Williams Notes Date Note Type Note Provider Name and Address Organization Details Recorded Time 11/08/2023 text/html Blurred vision , OU.Frontal headaches.Worse when readingSlimy mucous discharge OU. Faiza Hassan MD [address], [place], [address], [place] [facility] 11/08/2023 14:44:04 11/08/2023 text/html ROS as noted in the HPI patient complaining of ringing in his ears. He has worked in noisy environments for many years. He has also used ear buds with Loud music as well. He has not really complaining of pain or drainage. He has not had any surgery on his ears. Heriberto Addison MD [address], [place], [address], [place] [facility] 11/08/2023 14:53:10 03/01/2024 text/html Patient is a [...] on albuterol and Advair. He endorses a residential history of smoking. He currently smokes 1/2 pack per day. Patient denies chest pain. Patient states he has never been tested for COPD. Allergies none fam historymom and dad copdfather prostate cancermom and dad had diabetes Social historySmokes 1/2 pack per dayNo other drug use Chaya Matthews MD Attn: [place], [address], [facility] 03/07/2024 11:33:56 05/08/2024 text/html Patient is a [...] drug use Chaya Matthews MD Attn: Accounting,[address] , [place], [address], [facility] 05/24/2024 00:50:24 01/18/2025 text/html ROS as noted in the HPI A 59 y/o male with PMH of mild COPD, hx of spontaneous [...] is difficult. Alesha Villagomez MD Attn: Accounting,[address] [facility], [place], [address], [facility] 02/25/2025 18:44:41
[2025-08-14 09:45] VITALS: BP 132/90; PULSE 67; RESP 18; TEMP 36.3; O2SAT 100; BMI 25.1
[2025-08-14] MEDS: LACTATED RINGERS 1,000 ML 150 ML IV CONT (10:10)
--- NOTE | 2025-08-14 10:45 | WPDANESEPPF ---
Anes - Initial Pre Proc Eval Procedure: Operation Date: 08/14/25 11:00 Proposed Procedures p Screening Colonoscopy - Steve Ellison MD Date/Time: 08/14/25 10:45 Surgeon: Steve Ellison MD Pre Op Diagnosis: Polyp of colon Patient Data Age: 59 Gender: M Height: 1.8 m Weight: 81.7 kg Last Vital Signs Temp 36.3 C L 08/14/25 09:45 Pulse 67 08/14/25 09:45 Resp 18 08/14/25 09:45 BP 132/90 08/14/25 09:45 Pulse Ox 100 08/14/25 09:45 O2 Del Method Room Air 08/14/25 09:45 Allergies Allergy/AdvReac Type Severity Reaction Status Date / Time mattson Allergy Rash Verified 08/14/25 09:56 Home Medications ?Medication ?Instructions ?Recorded ?Confirmed ?Type albuterol sulfate 90 mcg/actuation 1 inh inhalation DAILY PRN 08/07/25 08/14/25 History aerosol inhaler shortness of breath or wheezing finasteride 5 mg tablet 5 mg PO DAILY 08/07/25 08/14/25 History glycopyrrolate 9 mcg-formoterol 2 inh inhalation Q12H 08/07/25 08/14/25 History 4.8 mcg HFA aerosol inhaler (Bevespi Aerosphere) rosuvastatin 20 mg tablet 20 mg PO DAILY 08/07/25 08/14/25 History Patient hx anesthesia problems: none Family hx anesthesia problems: none Results Review: All pre-operative results and documents have been reviewed as part of the pre-operative evaluation. [facility] Past Medical History Medical History (Updated 08/14/25 @ 10:46 by Heriberto Jimenez MD) COPD (chronic obstructive pulmonary disease) Social History Social History Smoking packs per day: 2 Smoking cigarettes per day: 40.0 Years smoked: 42 Smoking pack-years: 84.00 Smoking status: Former smoker Tobacco type: cigarettes Substance use: current Substance use type: marijuana Other substance usage details: 5 Living arrangements: with family Spiritual care concerns: No Anes - Eval Final PreProcedure Day of Procedure 08/14/25 10:45 Patient weight: normal Heart: regular rate and rhythm Lungs: clear to auscultation Airway: Mallampati scale class II Neurological: alert and oriented Last oral intake: >/= 8 hours ASA classification: III Emergent: no Anesthetic plan: proceed Anesthesia type and monitoring: general GIVS and standard monitoring Results Review: All pre-operative results and documents have been reviewed as part of the pre-operative evaluation. Informed Consent: The patient's anesthetic plan and its attendant risks and benefits were discussed with the patient/family/POA. Questions were solicited and answers provided to the satisfaction of the patient/family/POA.
--- NOTE | 2025-08-14 10:55 | PM.IMHP ---
H&P: HPI History of Present Illness Date/Time: 08/14/25 10:55 Chief Complaint: History of colon polyps Narrative: The patient has a history of colonic polyps, the last colonoscopy was approximately 2 years ago in another institution. Review of Systems Review of Systems: All systems reviewed & are unremarkable except as noted in HPI and below [facility] Past Medical History Medical History (Updated 08/14/25 @ 10:56 by Steve Ellison MD) COPD (chronic obstructive pulmonary disease) Social History Social History Smoking packs per day: 2 Smoking cigarettes per day: 40.0 Years smoked: 42 Smoking pack-years: 84.00 Smoking status: Former smoker Tobacco type: cigarettes Substance use: current Substance use type: marijuana Other substance usage details: 5 Living arrangements: with family Spiritual care concerns: No Meds Home Medications and Allergies Home Medications ?Medication ?Instructions ?Recorded ?Confirmed ?Type albuterol sulfate 90 mcg/actuation 1 inh inhalation DAILY PRN 08/07/25 08/14/25 History aerosol inhaler shortness of breath or wheezing finasteride 5 mg tablet 5 mg PO DAILY 08/07/25 08/14/25 History glycopyrrolate 9 mcg-formoterol 2 inh inhalation Q12H 08/07/25 08/14/25 History 4.8 mcg HFA aerosol inhaler (Bevespi Aerosphere) rosuvastatin 20 mg tablet 20 mg PO DAILY 08/07/25 08/14/25 History Allergies Allergy/AdvReac Type Severity Reaction Status Date / Time mattson Allergy Rash Verified 08/14/25 09:56 Vital Signs Vital Signs - 24 hr 08/14/25 09:45 Temperature 97.4 F L Pulse Rate 67 Respiratory Rate 18 Blood Pressure 132/90 Pulse Oximetry 100 Oxygen Delivery Room Air Exam Const: General: cooperative and healthy appearing Resp: Effort & Inspection: normal respiratory effort and able to speak in complete sentences Auscultation: clear to auscultation bilaterally Cardio: Rate: regular rate Rhythm: regular rhythm GI: Inspection: normal to inspection GI Palp: No No hepatosplenomegaly present Auscultation: normal bowel sounds Rectal Exam: deferred Skin: General skin exam: normal color Psych: Appearance: grossly normal Mental Status: mental status grossly normal Assessment and Plan Assessment and plan (1) History of colonic polyps: Code(s): Z86.0100 - Personal history of colon polyps, unspecified Status: Acute Assessment and Plan: The patient is deemed a good candidate for the procedure. Consent signed. Will proceed.
[2025-08-14 11:20] VITALS: BP 92/50; PULSE 68; RESP 19; O2SAT 97
[2025-08-14 11:30] VITALS: BP 114/70; PULSE 63; RESP 15; O2SAT 99
[2025-08-14 11:40] VITALS: BP 125/76; PULSE 62; RESP 15; O2SAT 99
== END 2025-08-14 11:41 | disposition home or self-care (01) ==
PROVIDERS: PCP Internal Medicine; Visit Provider Internal Medicine Gastroenterology
PROC: 0DJD8ZZ Inspection of Lower Intestinal Tract, Via Natural or Artificial Opening Endoscopic (ICD-10-PCS; CPT 45378; principal; 2025-08-14 11:00)
DX: Z12.11 Encounter for screening for malignant neoplasm of colon (principal); Z86.0100 Personal history of colon polyps, unspecified
CPT/HCPCS: 45378; J2003; J2704; J7120